=== PATIENT | female | born 1950 | race Caucasian/White ===

== ENCOUNTER 2020-03-06 11:41 | Inpatient (IN) ==
[2020-03-06] MEDS ORDERED: Aspirin 81 MG TAB.CHEW PO ONE (11:47)
[2020-03-06] MEDS ORDERED: 0.9 % Sodium Chloride 1,000 ML IVC SCH (12:15)
[2020-03-06 12:39] LABS: Basophils % 0.2 %; Hematocrit 44.9 % (35.3-44.9); Hemoglobin 14.5 g/dL (11.5-15.4); Immature Granulocytes % 0.6 % (0-4); Lymphocytes # 0.8 K/mcL (0.6-4.6); Lymphocytes % 5.3 %; Mean Corpuscular HGB Conc 32.3 g/dL (31.6-35.5); Mean Corpuscular Hemoglobin 26.2 pg (28.0-33.3); Mean Platelet Volume 9.6 fL (9.4-12.4); Monocytes # 1.1 K/mcL (0.0-1.3); Monocytes % 6.7 %; Neutrophils # 13.7 K/mcL (1.6-8.9); Platelet Count 373 K/mcL (140-400); Red Blood Count 5.54 M/mcL (3.82-4.97); Red Cell Distribution Width 14.8 % (11.5-14.5); Segmented Neutrophils % 87.2 %; White Blood Count 15.7 K/mcL (4.3-11.1)
[2020-03-06 12:42] LABS: VBG HCO3 16 mEq/L (21-27); VBG PCO2 37 mmHg (41-51); VBG PH 7.25 pH Units (7.32-7.42); VBG PO2 47 mmHg (25-50)
[2020-03-06 12:49] LABS: INR 1.1; Prothrombin Time 13.1 Seconds (9.4-12.1)
[2020-03-06] MEDS ORDERED: Ondansetron 4 MG/2 ML VIAL IVP ONE (12:55)
[2020-03-06 13:00] LABS: Albumin 3.8 g/dL (3.5-5.7); Albumin/Globulin Ratio 0.8 (1.1-2.2); Bilirubin,Direct 0.1 mg/dL (0.0-0.2); Bilirubin,Indirect 0.5 mg/dL (0.0-1.0); Bilirubin,Total 0.6 mg/dL (0.3-1.0); Calcium 10.1 mg/dL (8.6-10.3); Globulin 4.7 g/dL (2.4-3.5); Potassium 5.1 mEq/L (3.5-5.1); Total Protein 8.5 g/dL (6.4-8.9); Troponin I 0.03 ng/mL (< 0.04)
[2020-03-06] MEDS ORDERED: Azithromycin 500 MG in 0.9 % Sodium Chloride 250 ML IVPB ONE (13:16)
[2020-03-06] MEDS ORDERED: cefTRIAXone 2,000 MG in Water for inj. (sterile) 20 ML IVP ONE (13:16)
[2020-03-06] MEDS ORDERED: Insulin Regular, Human 100 UNIT/ML IV ONE (13:18)
[2020-03-06] MEDS ORDERED: 0.9 % Sodium Chloride 1,000 ML IVC ONE ×2 (13:19→13:43)
[2020-03-06 13:22] LABS: Bacteria,Urine Few per hpf (None-Few); Bilirubin,Urine Negative (Negative); Blood,Urine Moderate (Negative); Clarity,Urine Ex.Turbid (Clear); Color,Urine Yellow (Yellow); Glucose,Urine (UA) >=1000 mg/dL (Normal); Ketones,Urine 20 mg/dL (Negative); Leukocyte Esterase,Urine Large (Negative); Mucus,Urine Few per lpf (None-Few); Nitrite,Urine Negative (Negative); PH,Urine 6.5 pH Units (5.0-8.0); Protein,Urine 70 mg/dL (Neg-Trace); RBC,Urine 0-3 per hpf (0-3); Specific Gravity,Urine 1.016 (1.010-1.025); Squamous Epithelial Cell,Urine Few per hpf (None-Few); Urobilinogen,Urine Normal (Normal); WBC,Urine TNTC per hpf (0-3)
[2020-03-06] MEDS ORDERED: Insulin Human Regular 100 UNIT in 0.9 % Sodium Chloride 100 ML IVC SCH ×2 (13:30→21:45)
[2020-03-06] MEDS ORDERED: Naloxone 0.4 MG/ML INJ IVP PRN (15:05)
[2020-03-06] MEDS ORDERED: Acetaminophen 325 MG TABLET PO PRN (15:05)
[2020-03-06] MEDS ORDERED: *HR* Dextrose 50 % in Water (Vial) 50 ML VIAL IVP PRN ×2 (15:13→20:28)
[2020-03-06] MEDS: 0.45 % Sodium Chloride w/KCl 20 MEQ/1,000 ML MLS IVC SCH (16:03)
[2020-03-06 16:33] LABS: Acetaminophen < 10 mcg/mL (10-20); BUN/Creatinine Ratio 35 (6-26); Blood Urea Nitrogen 44 mg/dL (8-23); Carbon Dioxide 16 mEq/L (23-29); Chloride 100 mEq/L (98-107); Glucose 332 mg/dL (70-105); Osmolality,Calculated 300 (280-300); Potassium 4.4 mEq/L (3.5-5.1); Sodium 133 mEq/L (136-145); eGFR For African Americans 52 (> 60); eGFR For Non-African Americans 43 (> 60)
[2020-03-06 17:05] LABS: Estimated Average Glucose 303 mg/dl
[2020-03-06 17:05] LABS: ABG Base Excess -7 mEq/L (-2 to 3); ABG HCO3 16 mEq/L (21-27); ABG Oxygen Saturation 98 % (95-98); ABG PCO2 25 mmHg (35-45); ABG PO2 108 mmHg (85-104); ABG TCO2 17 mEq/L (20-26)
[2020-03-06 17:48] LABS: Chol/HDL Ratio 4.1 (0-4.9); Cholesterol 150 mg/dL (< 200); HDL Cholesterol 37 mg/dL (40-59); LDL Cholesterol,Calculated 78 mg/dL (< 100); Triglycerides 174 mg/dL (< 150)
[2020-03-06 18:45] LABS: Calcium 9.3 mg/dL (8.6-10.3); Potassium 4.8 mEq/L (3.5-5.1)
[2020-03-06] MEDS: Ondansetron 4 MG/2 ML VIAL IVP PRN (19:47)
[2020-03-06] MEDS ORDERED: D5% in Water 1,000 ML IVC PRN (20:28)
[2020-03-06] MEDS ORDERED: Dextrose Gel 15 GM/37.5 ML TUBE PO PRN ×2 (20:28)
[2020-03-06] MEDS ORDERED: Insulin LISPRO 300 UNITS/3 ML VIAL SQ SCH (21:00)
[2020-03-06] MEDS ORDERED: Insulin DETEMIR 100 UNIT/ML X5UNITS SQ SCH (21:00)
[2020-03-06] MEDS ORDERED: D5% in 0.45% NACL 1,000 ML IVC PRN ×2 (21:43→21:57)
[2020-03-06] MEDS: D5% in 0.45% NACL w KCl 20 MEQ/1,000 ML MLS IVC PRN (22:00)
[2020-03-06] MEDS: Insulin Human Regular 100 UNIT in 0.9 % Sodium Chloride 100 ML IVC SCH (22:04)
[2020-03-06] MEDS: Ipratropium 1 PUFF INHALER IH SCH (22:19)
[2020-03-06] MEDS: *HR* Promethazine 25 MG/ML VIAL IM PRN (22:27)
[2020-03-07] MEDS: 0.45 % Sodium Chloride w/KCl 20 MEQ/1,000 ML MLS IVC SCH (00:02)
[2020-03-07] MEDS: D5% in 0.45% NACL w KCl 20 MEQ/1,000 ML MLS IVC PRN ×2 (02:12→06:23)
[2020-03-07] MEDS: Ipratropium 1 PUFF INHALER IH SCH ×5 (04:23→19:47)
[2020-03-07 04:48] LABS: C-Reactive Protein 63 mg/L (Less than 10); Lactate Dehydrogenase 129 Units/L (140-271)
[2020-03-07 04:51] LABS: Alanine Aminotransferase 4 Units/L (7-52); Albumin 2.9 g/dL (3.5-5.7); Albumin/Globulin Ratio 0.8 (1.1-2.2); Alkaline Phosphatase 102 Units/L (34-104); Aspartate Amino Transferase 7 Units/L (13-39); BUN/Creatinine Ratio 36 (6-26); Bilirubin,Total 0.5 mg/dL (0.3-1.0); Blood Urea Nitrogen 36 mg/dL (8-23); Calcium 8.4 mg/dL (8.6-10.3); Carbon Dioxide 18 mEq/L (23-29); Chloride 102 mEq/L (98-107); Globulin 3.5 g/dL (2.4-3.5); Glucose 199 mg/dL (70-105); Magnesium 1.8 mg/dL (1.6-2.6); Osmolality,Calculated 284 (280-300); Phosphorous 1.1 mg/dL (2.7-4.5); Potassium 4.7 mEq/L (3.5-5.1); Sodium 130 mEq/L (136-145); Total Protein 6.4 g/dL (6.4-8.9); Troponin I < 0.03 ng/mL (< 0.04); eGFR For African Americans > 60 (> 60); eGFR For Non-African Americans 55 (> 60)
[2020-03-07 05:04] LABS: Basophils % 0.2 %; Eosinophils % 0.1 %; Hematocrit 36.3 % (35.3-44.9); Immature Granulocytes % 0.3 % (0-4); Lymphocytes # 1.2 K/mcL (0.6-4.6); Mean Corpuscular HGB Conc 32.5 g/dL (31.6-35.5); Mean Corpuscular Hemoglobin 26.3 pg (28.0-33.3); Monocytes # 1.1 K/mcL (0.0-1.3); Monocytes % 10.6 %; Neutrophils # 8.3 K/mcL (1.6-8.9); Platelet Count 267 K/mcL (140-400); Red Blood Count 4.48 M/mcL (3.82-4.97); Red Cell Distribution Width 14.7 % (11.5-14.5); Segmented Neutrophils % 77.8 %; White Blood Count 10.6 K/mcL (4.3-11.1)
[2020-03-07 05:05] LABS: Hemoglobin 11.8 g/dL (11.5-15.4)
[2020-03-07] MEDS: *HR* Enoxaparin 40 MG/0.4 ML SYRINGE SQ SCH (05:20)
[2020-03-07] MEDS ORDERED: Insulin LISPRO 300 UNITS/3 ML VIAL SQ SCH (07:30)
[2020-03-07] MEDS: Insulin Human Regular 100 UNIT in 0.9 % Sodium Chloride 100 ML IVC SCH (07:53)
[2020-03-07] MEDS: Insulin DETEMIR 100 UNIT/ML X5UNITS SQ SCH ×2 (10:23→20:04)
[2020-03-07] MEDS: Insulin LISPRO 300 UNITS/3 ML VIAL SQ SCH ×3 (11:26→20:26)
[2020-03-07] MEDS ORDERED: Azithromycin 500 MG in 0.9 % Sodium Chloride 250 ML IVPB SCH (14:00)
[2020-03-07] MEDS: cefTRIAXone 1,000 MG in Water for inj. (sterile) 10 ML IVP SCH (14:20)
[2020-03-07] MEDS: Ondansetron 4 MG/2 ML VIAL IVP PRN (14:40)
[2020-03-07] MEDS: *HR* Promethazine 25 MG/ML VIAL IM PRN (20:04)
[2020-03-07] MEDS ORDERED: Insulin DETEMIR 100 UNIT/ML X5UNITS SQ SCH (21:00)
[2020-03-07] MEDS ORDERED: Potassium Phosphate 44 MEQ in 0.9 % Sodium Chloride 250 ML IVPB ONE (22:00)
[2020-03-08] MEDS: Ipratropium 1 PUFF INHALER IH SCH ×4 (03:24→21:50)
[2020-03-08 05:08] LABS: Basophils % 0.6 %; Eosinophils % 0.4 %; Hematocrit 39.1 % (35.3-44.9); Hemoglobin 12.3 g/dL (11.5-15.4); Immature Granulocytes % 0.4 % (0-4); Lymphocytes # 1.3 K/mcL (0.6-4.6); Lymphocytes % 18.6 %; Mean Corpuscular HGB Conc 31.5 g/dL (31.6-35.5); Mean Corpuscular Hemoglobin 25.5 pg (28.0-33.3); Mean Corpuscular Volume 81.1 fL (83.0-100.0); Mean Platelet Volume 9.2 fL (9.4-12.4); Monocytes # 0.8 K/mcL (0.0-1.3); Monocytes % 11.7 %; Neutrophils # 4.9 K/mcL (1.6-8.9); Platelet Count 264 K/mcL (140-400); Red Blood Count 4.82 M/mcL (3.82-4.97); Red Cell Distribution Width 15.1 % (11.5-14.5); Segmented Neutrophils % 68.3 %; White Blood Count 7.1 K/mcL (4.3-11.1)
[2020-03-08] MEDS: *HR* Enoxaparin 40 MG/0.4 ML SYRINGE SQ SCH (05:16)
[2020-03-08 05:34] LABS: % Iron Saturation 19 % (15-50); Alanine Aminotransferase 5 Units/L (7-52); Albumin 2.8 g/dL (3.5-5.7); Albumin/Globulin Ratio 0.8 (1.1-2.2); Alkaline Phosphatase 101 Units/L (34-104); Aspartate Amino Transferase 7 Units/L (13-39); BUN/Creatinine Ratio 24 (6-26); Bilirubin,Total 0.5 mg/dL (0.3-1.0); Blood Urea Nitrogen 19 mg/dL (8-23); C-Reactive Protein 60 mg/L (Less than 10); Calcium 8.5 mg/dL (8.6-10.3); Carbon Dioxide 18 mEq/L (23-29); Chloride 109 mEq/L (98-107); Globulin 3.7 g/dL (2.4-3.5); Glucose 147 mg/dL (70-105); Iron 36 mcg/dL (50-170); Lactate Dehydrogenase 128 Units/L (140-271); Magnesium 1.7 mg/dL (1.6-2.6); Osmolality,Calculated 289 (280-300); Phosphorous 2.9 mg/dL (2.7-4.5); Potassium 4.1 mEq/L (3.5-5.1); Sodium 137 mEq/L (136-145); Total Protein 6.5 g/dL (6.4-8.9); Transferrin 132 mg/dL (203-362); eGFR For African Americans > 60 (> 60); eGFR For Non-African Americans > 60 (> 60)
[2020-03-08 05:47] LABS: Ferritin 376 ng/mL (10-120)
[2020-03-08 05:52] LABS: Folate 5.2 ng/mL (3.0-16.0)
[2020-03-08] MEDS: Insulin LISPRO 300 UNITS/3 ML VIAL SQ SCH ×7 (07:35→20:21)
[2020-03-08] MEDS: Magic Mouthwash 10 ML UD Cup PO SCH ×3 (07:36→16:27)
[2020-03-08] MEDS: Chlorhexidine Rinse 15 ML MOUTHWASH MM SCH ×2 (07:37→20:20)
[2020-03-08] MEDS: Fluticasone Propionate Nasal 50 MCG/SPRAY BOTTLE NS SCH (07:37)
[2020-03-08] MEDS: lisinopriL 5 MG TABLET PO SCH (07:38)
[2020-03-08] MEDS: Insulin DETEMIR 100 UNIT/ML X5UNITS SQ SCH ×2 (07:38→20:21)
[2020-03-08] MEDS: cefTRIAXone 1,000 MG in Water for inj. (sterile) 10 ML IVP SCH (13:57)
[2020-03-08] MEDS: Sennosides/Docusate Sodium TABLET PO SCH (20:20)
[2020-03-08] MEDS: Pantoprazole 40 MG VIAL IVP SCH (20:22)
[2020-03-09] MEDS: Ipratropium 1 PUFF INHALER IH SCH ×4 (03:09→21:37)
[2020-03-09 04:40] LABS: Basophils % 0.4 %; Eosinophils % 0.5 %; Hematocrit 37.1 % (35.3-44.9); Hemoglobin 11.8 g/dL (11.5-15.4); Immature Granulocytes % 0.1 % (0-4); Lymphocytes # 1.7 K/mcL (0.6-4.6); Lymphocytes % 22.3 %; Mean Corpuscular HGB Conc 31.8 g/dL (31.6-35.5); Mean Corpuscular Volume 81.9 fL (83.0-100.0); Mean Platelet Volume 9.1 fL (9.4-12.4); Monocytes # 0.8 K/mcL (0.0-1.3); Monocytes % 9.8 %; Neutrophils # 5.1 K/mcL (1.6-8.9); Platelet Count 232 K/mcL (140-400); Red Blood Count 4.53 M/mcL (3.82-4.97); Red Cell Distribution Width 15.4 % (11.5-14.5); Segmented Neutrophils % 66.9 %; White Blood Count 7.6 K/mcL (4.3-11.1)
[2020-03-09 05:05] LABS: Alanine Aminotransferase 4 Units/L (7-52); Albumin 2.7 g/dL (3.5-5.7); Albumin/Globulin Ratio 0.8 (1.1-2.2); Alkaline Phosphatase 93 Units/L (34-104); Aspartate Amino Transferase 7 Units/L (13-39); BUN/Creatinine Ratio 18 (6-26); Bilirubin,Total 0.4 mg/dL (0.3-1.0); Blood Urea Nitrogen 12 mg/dL (8-23); C-Reactive Protein 37 mg/L (Less than 10); Calcium 8.3 mg/dL (8.6-10.3); Carbon Dioxide 19 mEq/L (23-29); Chloride 108 mEq/L (98-107); Globulin 3.2 g/dL (2.4-3.5); Glucose 112 mg/dL (70-105); Lactate Dehydrogenase 122 Units/L (140-271); Magnesium 1.5 mg/dL (1.6-2.6); Osmolality,Calculated 279 (280-300); Phosphorous 2.2 mg/dL (2.7-4.5); Potassium 4.3 mEq/L (3.5-5.1); Sodium 134 mEq/L (136-145); Total Protein 5.9 g/dL (6.4-8.9); eGFR For African Americans > 60 (> 60); eGFR For Non-African Americans > 60 (> 60)
[2020-03-09 05:19] LABS: Ferritin 273 ng/mL (10-120)
[2020-03-09] MEDS: Pantoprazole 40 MG VIAL IVP SCH (05:45)
[2020-03-09] MEDS: *HR* Enoxaparin 40 MG/0.4 ML SYRINGE SQ SCH (05:45)
[2020-03-09] MEDS: Insulin LISPRO 300 UNITS/3 ML VIAL SQ SCH ×7 (07:09→22:12)
[2020-03-09] MEDS: Chlorhexidine Rinse 15 ML MOUTHWASH MM SCH ×2 (09:05→21:18)
[2020-03-09] MEDS: lisinopriL 5 MG TABLET PO SCH (09:06)
[2020-03-09] MEDS: Magic Mouthwash 10 ML UD Cup PO SCH ×3 (09:09→16:11)
[2020-03-09] MEDS: Insulin DETEMIR 100 UNIT/ML X5UNITS SQ SCH ×2 (09:09→21:18)
[2020-03-09] MEDS: Sennosides/Docusate Sodium TABLET PO SCH ×2 (09:12→21:18)
[2020-03-09] MEDS: cefTRIAXone 1,000 MG in Water for inj. (sterile) 10 ML IVP SCH (14:34)
[2020-03-09] MEDS ORDERED: Iron Sucrose Complex 400 MG in 0.9 % Sodium Chloride 250 ML IVPB ONE (16:10)
[2020-03-09] MEDS: Fluticasone Propionate Nasal 50 MCG/SPRAY BOTTLE NS SCH (16:27)
[2020-03-09] MEDS ORDERED: Insulin LISPRO 300 UNITS/3 ML VIAL SQ SCH (16:30)
[2020-03-10] MEDS: Ipratropium 1 PUFF INHALER IH SCH ×4 (03:15→22:05)
[2020-03-10] MEDS: *HR* Enoxaparin 40 MG/0.4 ML SYRINGE SQ SCH (05:16)
[2020-03-10 06:57] LABS: Basophils % 0.6 %; Eosinophils # 0.1 K/mcL (0.0-0.6); Eosinophils % 1.2 %; Hematocrit 36.4 % (35.3-44.9); Hemoglobin 11.6 g/dL (11.5-15.4); Immature Granulocytes % 0.3 % (0-4); Lymphocytes # 1.5 K/mcL (0.6-4.6); Lymphocytes % 22.8 %; Mean Corpuscular HGB Conc 31.9 g/dL (31.6-35.5); Mean Corpuscular Hemoglobin 25.8 pg (28.0-33.3); Mean Corpuscular Volume 80.9 fL (83.0-100.0); Mean Platelet Volume 9.1 fL (9.4-12.4); Monocytes # 0.6 K/mcL (0.0-1.3); Monocytes % 9.8 %; Neutrophils # 4.2 K/mcL (1.6-8.9); Platelet Count 222 K/mcL (140-400); Red Cell Distribution Width 15.4 % (11.5-14.5); Segmented Neutrophils % 65.3 %; White Blood Count 6.5 K/mcL (4.3-11.1)
[2020-03-10 07:28] LABS: Alanine Aminotransferase 6 Units/L (7-52); Albumin 2.7 g/dL (3.5-5.7); Albumin/Globulin Ratio 0.9 (1.1-2.2); Alkaline Phosphatase 98 Units/L (34-104); Aspartate Amino Transferase 6 Units/L (13-39); BUN/Creatinine Ratio 12 (6-26); Bilirubin,Total 0.4 mg/dL (0.3-1.0); Blood Urea Nitrogen 8 mg/dL (8-23); Calcium 8.5 mg/dL (8.6-10.3); Carbon Dioxide 21 mEq/L (23-29); Chloride 105 mEq/L (98-107); Glucose 96 mg/dL (70-105); Lactate Dehydrogenase 103 Units/L (140-271); Magnesium 2.1 mg/dL (1.6-2.6); Osmolality,Calculated 274 (280-300); Phosphorous 2.8 mg/dL (2.7-4.5); Sodium 133 mEq/L (136-145); Total Protein 5.7 g/dL (6.4-8.9); eGFR For African Americans > 60 (> 60); eGFR For Non-African Americans > 60 (> 60)
[2020-03-10 07:34] LABS: Ferritin 269 ng/mL (10-120)
[2020-03-10] MEDS: Insulin LISPRO 300 UNITS/3 ML VIAL SQ SCH ×6 (07:36→20:55)
[2020-03-10 09:18] LABS: C-Reactive Protein 32 mg/L (Less than 10)
[2020-03-10] MEDS: Chlorhexidine Rinse 15 ML MOUTHWASH MM SCH (09:42)
[2020-03-10] MEDS: Magic Mouthwash 10 ML UD Cup PO SCH ×2 (09:42→12:28)
[2020-03-10] MEDS: Sennosides/Docusate Sodium TABLET PO SCH ×2 (09:42→20:54)
[2020-03-10] MEDS: Fluticasone Propionate Nasal 50 MCG/SPRAY BOTTLE NS SCH (09:43)
[2020-03-10] MEDS: lisinopriL 5 MG TABLET PO SCH (09:43)
[2020-03-10] MEDS: Insulin DETEMIR 100 UNIT/ML X5UNITS SQ SCH (09:43)
[2020-03-10] MEDS: Ondansetron 4 MG/2 ML VIAL IVP PRN (12:58)
[2020-03-10] MEDS ORDERED: Pantoprazole 40 MG VIAL IVP ONE (13:29)
[2020-03-10] MEDS: GI Cocktail 40 ML EACH PO ONE ×2 (14:18→16:42)
[2020-03-10] MEDS ORDERED: Nystatin POWDER 30 GM BOTTLE TP PRN (17:41)
[2020-03-11 02:24] LABS: Hematocrit 35.6 % (35.3-44.9); Hemoglobin 11.2 g/dL (11.5-15.4); Mean Corpuscular HGB Conc 31.5 g/dL (31.6-35.5); Mean Corpuscular Hemoglobin 25.5 pg (28.0-33.3); Mean Corpuscular Volume 81.1 fL (83.0-100.0); Mean Platelet Volume 9.5 fL (9.4-12.4); Platelet Count 213 K/mcL (140-400); Red Blood Count 4.39 M/mcL (3.82-4.97); Red Cell Distribution Width 15.4 % (11.5-14.5); White Blood Count 6.1 K/mcL (4.3-11.1)
[2020-03-11 02:39] LABS: BUN/Creatinine Ratio 13 (6-26); Blood Urea Nitrogen 8 mg/dL (8-23); Calcium 8.1 mg/dL (8.6-10.3); Carbon Dioxide 19 mEq/L (23-29); Chloride 103 mEq/L (98-107); Glucose 182 mg/dL (70-105); Osmolality,Calculated 275 (280-300); Sodium 131 mEq/L (136-145); eGFR For African Americans > 60 (> 60); eGFR For Non-African Americans > 60 (> 60)
[2020-03-11] MEDS: Ipratropium 1 PUFF INHALER IH SCH ×3 (03:22→10:32)
[2020-03-11] MEDS: *HR* Enoxaparin 40 MG/0.4 ML SYRINGE SQ SCH (06:43)
[2020-03-11] MEDS: lisinopriL 5 MG TABLET PO SCH (08:40)
[2020-03-11] MEDS: Fluticasone Propionate Nasal 50 MCG/SPRAY BOTTLE NS SCH (08:41)
[2020-03-11] MEDS: Insulin LISPRO 300 UNITS/3 ML VIAL SQ SCH ×3 (08:41→16:04)
[2020-03-11] MEDS ORDERED: Insulin DETEMIR 100 UNIT/ML X5UNITS SQ SCH (09:00)
[2020-03-11] MEDS ORDERED: Isovue-370 500 ML BOTTLE IVP ONE (09:07)
[2020-03-11] MEDS ORDERED: Mag Hydrox/Al Hydrox/Simeth 30 ML UDC PO PRN (10:30)
[2020-03-11 12:38] VITALS: BP 110/65
== END 2020-03-11 17:42 | disposition home health service (06) | DRG 871 ==
LOC: 2NENU 11:41 → EMEROOARM 11:41 → SUATTDRO 14:36 → 2NENU 15:15
PROVIDERS: ADMIT Internal Medicine; ATTEND Internal Medicine

== ENCOUNTER 2020-05-02 10:13 | Inpatient (IN) ==
[2020-05-02] MEDS ORDERED: 0.9 % Sodium Chloride 1,000 ML IVC ONE (10:22)
[2020-05-02] MEDS ORDERED: Isovue-370 500 ML BOTTLE IVP ONE (10:22)
[2020-05-02 10:56] LABS: Basophils % 0.2 %; Hematocrit 48.8 % (35.3-44.9); Hemoglobin 15.6 g/dL (11.5-15.4); Immature Granulocytes % 0.5 % (0-4); Lymphocytes # 0.8 K/mcL (0.6-4.6); Mean Corpuscular Hemoglobin 26.9 pg (28.0-33.3); Mean Corpuscular Volume 84.1 fL (83.0-100.0); Mean Platelet Volume 9.6 fL (9.4-12.4); Monocytes # 0.6 K/mcL (0.0-1.3); Neutrophils # 11.3 K/mcL (1.6-8.9); Platelet Count 436 K/mcL (140-400); Red Cell Distribution Width 18.9 % (11.5-14.5); Segmented Neutrophils % 88.3 %; White Blood Count 12.8 K/mcL (4.3-11.1)
[2020-05-02 11:26] LABS: Alanine Aminotransferase 5 Units/L (7-52); Alkaline Phosphatase 131 Units/L (34-104); Aspartate Amino Transferase 5 Units/L (13-39); BUN/Creatinine Ratio 19 (6-26); Bilirubin,Direct 0.1 mg/dL (0.0-0.2); Bilirubin,Indirect 0.4 mg/dL (0.0-1.0); Bilirubin,Total 0.5 mg/dL (0.3-1.0); Blood Urea Nitrogen 35 mg/dL (8-23); Calcium 10.6 mg/dL (8.6-10.3); Carbon Dioxide 14 mEq/L (23-29); Chloride 93 mEq/L (98-107); Globulin 4.1 g/dL (2.4-3.5); Glucose 613 mg/dL (70-105); Lipase 394 Units/L (11-82); Osmolality,Calculated 321 (280-300); Potassium 4.3 mEq/L (3.5-5.1); Sodium 137 mEq/L (136-145); Total Protein 8.1 g/dL (6.4-8.9); Troponin I < 0.03 ng/mL (< 0.04); eGFR For African Americans 33 (> 60); eGFR For Non-African Americans 27 (> 60)
[2020-05-02] MEDS ORDERED: *HR* Dextrose 50 % in Water (Vial) 50 ML VIAL IVP PRN ×2 (11:30→13:54)
[2020-05-02] MEDS ORDERED: Insulin Human Regular 100 UNIT in 0.9 % Sodium Chloride 100 ML IVC SCH (11:30)
[2020-05-02 11:41] LABS: VBG HCO3 15 mEq/L (21-27); VBG PCO2 26 mmHg (41-51); VBG PH 7.35 pH Units (7.32-7.42); VBG PO2 57 mmHg (25-50)
[2020-05-02] MEDS ORDERED: Potassium Chloride 40 MEQ, Lidocaine 1% 2 ML in 0.9 % Sodium Chloride 500 ML IVPB ONE (11:47)
[2020-05-02] MEDS ORDERED: Morphine Sulfate 2 MG/ML SYRINGE IVP STA (12:08)
[2020-05-02 12:58] LABS: Bacteria,Urine Few per hpf (None-Few); Bilirubin,Urine Negative (Negative); Blood,Urine Moderate (Negative); Budding Yeast,Urine Many per hpf (None Seen); Clarity,Urine Ex.Turbid (Clear); Color,Urine Yellow (Yellow); Glucose,Urine (UA) >=1000 mg/dL (Normal); Ketones,Urine 60 mg/dL (Negative); Leukocyte Esterase,Urine Large (Negative); Mucus,Urine Few per lpf (None-Few); Nitrite,Urine Negative (Negative); PH,Urine 5.5 pH Units (5.0-8.0); Protein,Urine 70 mg/dL (Neg-Trace); RBC,Urine TNTC per hpf (0-3); Specific Gravity,Urine > 1.030 (1.010-1.025); Squamous Epithelial Cell,Urine Many per hpf (None-Few); Urobilinogen,Urine Normal (Normal); WBC,Urine TNTC per hpf (0-3)
[2020-05-02] MEDS: 0.9 % Sodium Chloride 1,000 ML IVC SCH ×2 (12:58→13:43)
[2020-05-02] MEDS ORDERED: Naloxone 0.4 MG/ML INJ IVP PRN (13:52)
[2020-05-02] MEDS ORDERED: Metoclopramide 10 MG/2 ML VIAL IVP PRN (13:59)
[2020-05-02] MEDS: 0.45 % Sodium Chloride w/KCl 20 MEQ/1,000 ML MLS IVC SCH ×2 (15:07→23:37)
[2020-05-02] MEDS: *HR* Promethazine 25 MG/ML VIAL IM PRN (15:31)
[2020-05-02 16:13] LABS: Calcium 9.6 mg/dL (8.6-10.3); Potassium 3.7 mEq/L (3.5-5.1)
[2020-05-02] MEDS: Pantoprazole 40 MG VIAL IVP SCH (16:46)
[2020-05-02] MEDS: *HR* Heparin 5,000 UNIT/ML VIAL SQ SCH (16:46)
[2020-05-02] MEDS: cefTRIAXone 1,000 MG in Water for inj. (sterile) 10 ML IVP SCH (16:46)
[2020-05-02] MEDS: Nystatin POWDER 30 GM BOTTLE TP SCH (16:47)
[2020-05-02] MEDS: D5% in 0.45% NACL 1,000 ML IVC PRN (18:01)
[2020-05-02 19:42] LABS: Potassium 4.7 mEq/L (3.5-5.1)
[2020-05-02 21:09] LABS: Calcium 9.1 mg/dL (8.6-10.3)
[2020-05-03] MEDS: *HR* Promethazine 25 MG/ML VIAL IM PRN ×2 (01:05→06:29)
[2020-05-03 01:54] LABS: Basophils % 0.2 %; Hematocrit 40.8 % (35.3-44.9); Immature Granulocytes % 0.5 % (0-4); Lymphocytes # 1.1 K/mcL (0.6-4.6); Lymphocytes % 8.1 %; Mean Corpuscular HGB Conc 32.1 g/dL (31.6-35.5); Mean Corpuscular Volume 84.1 fL (83.0-100.0); Mean Platelet Volume 9.5 fL (9.4-12.4); Monocytes # 0.9 K/mcL (0.0-1.3); Monocytes % 6.9 %; Neutrophils # 11.2 K/mcL (1.6-8.9); Platelet Count 345 K/mcL (140-400); Red Blood Count 4.85 M/mcL (3.82-4.97); Red Cell Distribution Width 18.3 % (11.5-14.5); Segmented Neutrophils % 84.3 %; White Blood Count 13.3 K/mcL (4.3-11.1)
[2020-05-03 01:55] LABS: Hemoglobin 13.1 g/dL (11.5-15.4)
[2020-05-03 02:06] LABS: Calcium 8.9 mg/dL (8.6-10.3); Potassium 3.8 mEq/L (3.5-5.1)
[2020-05-03 02:08] LABS: Magnesium 1.7 mg/dL (1.6-2.6); Phosphorous 1.3 mg/dL (2.7-4.5)
[2020-05-03] MEDS: D5% in 0.45% NACL 1,000 ML IVC PRN ×2 (02:09→18:59)
[2020-05-03 03:38] LABS: BUN/Creatinine Ratio 24 (6-26); Blood Urea Nitrogen 26 mg/dL (8-23); Calcium 8.7 mg/dL (8.6-10.3); Carbon Dioxide 18 mEq/L (23-29); Chloride 113 mEq/L (98-107); Glucose 159 mg/dL (70-105); Osmolality,Calculated 302 (280-300); Potassium 4.8 mEq/L (3.5-5.1); Sodium 142 mEq/L (136-145); eGFR For African Americans > 60 (> 60); eGFR For Non-African Americans 50 (> 60)
[2020-05-03] MEDS: Pantoprazole 40 MG VIAL IVP SCH ×2 (06:30→17:57)
[2020-05-03] MEDS: *HR* Heparin 5,000 UNIT/ML VIAL SQ SCH ×2 (06:30→17:56)
[2020-05-03 06:57] LABS: BUN/Creatinine Ratio 25 (6-26); Blood Urea Nitrogen 24 mg/dL (8-23); Calcium 8.5 mg/dL (8.6-10.3); Carbon Dioxide 17 mEq/L (23-29); Chloride 111 mEq/L (98-107); Glucose 218 mg/dL (70-105); Osmolality,Calculated 295 (280-300); Potassium 4.4 mEq/L (3.5-5.1); Sodium 137 mEq/L (136-145); eGFR For African Americans > 60 (> 60); eGFR For Non-African Americans 57 (> 60)
[2020-05-03] MEDS: cefTRIAXone 1,000 MG in Water for inj. (sterile) 10 ML IVP SCH (07:39)
[2020-05-03 07:41] LABS: Estimated Average Glucose 266 mg/dl; Hemoglobin A1C 10.9 %
[2020-05-03] MEDS: Nystatin POWDER 30 GM BOTTLE TP SCH ×3 (07:47→22:14)
[2020-05-03] MEDS: Ondansetron 4 MG/2 ML VIAL IVP PRN (09:22)
[2020-05-03] MEDS: 0.45 % Sodium Chloride w/KCl 20 MEQ/1,000 ML MLS IVC SCH (09:22)
[2020-05-03] MEDS ORDERED: Ondansetron 4 MG/2 ML VIAL IVP SCH (12:00)
[2020-05-03 12:51] LABS: Influenza A PCR Negative (Negative); Influenza B PCR Negative (Negative); Resp. Syncytial Virus PCR Negative (Negative)
[2020-05-03 12:52] LABS: SARS-CoV-2 by PCR (In House) Negative (Negative)
[2020-05-03] MEDS ORDERED: Lidocaine -MPF 2% 2 ML VIAL ONE (13:12)
[2020-05-03] MEDS ORDERED: *HR* Propofol 200 MG/20 ML VIAL IVP ONE (13:12)
[2020-05-03] MEDS ORDERED: Ondansetron 4 MG/2 ML VIAL ONE (13:21)
[2020-05-03] MEDS ORDERED: *HR* Succinylcholine 200 MG/10 ML VIAL IVP ONE (13:21)
[2020-05-03] MEDS ORDERED: Lidocaine -MPF 4% 5 ML AMPUL ONE (13:22)
[2020-05-03] MEDS ORDERED: Insulin Human Regular 100 UNIT in 0.9 % Sodium Chloride 100 ML IVC SCH (18:15)
[2020-05-03 18:59] LABS: BUN/Creatinine Ratio 20 (6-26); Blood Urea Nitrogen 16 mg/dL (8-23); Calcium 8.3 mg/dL (8.6-10.3); Carbon Dioxide 20 mEq/L (23-29); Chloride 109 mEq/L (98-107); Glucose 220 mg/dL (70-105); Osmolality,Calculated 292 (280-300); Potassium 3.6 mEq/L (3.5-5.1); Sodium 137 mEq/L (136-145); eGFR For African Americans > 60 (> 60); eGFR For Non-African Americans > 60 (> 60)
[2020-05-04 01:09] LABS: BUN/Creatinine Ratio 16 (6-26); Blood Urea Nitrogen 14 mg/dL (8-23); Calcium 8.2 mg/dL (8.6-10.3); Carbon Dioxide 16 mEq/L (23-29); Chloride 112 mEq/L (98-107); Glucose 122 mg/dL (70-105); Osmolality,Calculated 290 (280-300); Potassium 3.2 mEq/L (3.5-5.1); Sodium 139 mEq/L (136-145); eGFR For African Americans > 60 (> 60); eGFR For Non-African Americans > 60 (> 60)
[2020-05-04] MEDS ORDERED: 0.45 % Sodium Chloride w/KCl 20 MEQ/1,000 ML MLS IVC SCH (01:15)
[2020-05-04] MEDS: cefTRIAXone 1,000 MG in Water for inj. (sterile) 10 ML IVP SCH (08:11)
[2020-05-04] MEDS: Nystatin POWDER 30 GM BOTTLE TP SCH ×3 (08:12→20:28)
[2020-05-04] MEDS: Pantoprazole 40 MG VIAL IVP SCH ×2 (08:12→17:53)
[2020-05-04] MEDS: *HR* Heparin 5,000 UNIT/ML VIAL SQ SCH (08:12)
[2020-05-04] MEDS: Ondansetron 4 MG/2 ML VIAL IVP PRN (08:14)
[2020-05-04] MEDS ORDERED: Insulin DETEMIR 100 UNIT/ML X5UNITS SUBQ ONE (09:21)
[2020-05-04 11:41] LABS: Hematocrit 36.4 % (35.3-44.9); Hemoglobin 11.7 g/dL (11.5-15.4); Mean Corpuscular HGB Conc 32.1 g/dL (31.6-35.5); Mean Corpuscular Hemoglobin 27.3 pg (28.0-33.3); Mean Corpuscular Volume 84.8 fL (83.0-100.0); Mean Platelet Volume 9.9 fL (9.4-12.4); Platelet Count 221 K/mcL (140-400); Red Blood Count 4.29 M/mcL (3.82-4.97); Red Cell Distribution Width 18.5 % (11.5-14.5)
[2020-05-04 11:56] LABS: C-Reactive Protein 75 mg/L (Less than 10)
[2020-05-04] MEDS: *HR* Promethazine 25 MG/ML VIAL IM PRN ×2 (13:24→20:35)
[2020-05-04 13:33] LABS: Lipase 55 Units/L (11-82)
[2020-05-04] MEDS ORDERED: Ondansetron ODT 4 MG TAB.RAPDIS SL PRN (16:24)
[2020-05-04] MEDS: Insulin LISPRO 300 UNITS/3 ML VIAL SUBQ SCH (16:54)
[2020-05-04] MEDS: Insulin DETEMIR 100 UNIT/ML X5UNITS SUBQ SCH (20:27)
[2020-05-04] MEDS ORDERED: Insulin DETEMIR 100 UNIT/ML X5UNITS SUBQ SCH (21:00)
[2020-05-05 01:47] LABS: BUN/Creatinine Ratio 15 (6-26); Blood Urea Nitrogen 11 mg/dL (8-23); Carbon Dioxide 20 mEq/L (23-29); Chloride 111 mEq/L (98-107); Glucose 172 mg/dL (70-105); Osmolality,Calculated 291 (280-300); Sodium 139 mEq/L (136-145); eGFR For African Americans > 60 (> 60); eGFR For Non-African Americans > 60 (> 60)
[2020-05-05] MEDS: Pantoprazole 40 MG VIAL IVP SCH ×2 (06:28→17:18)
[2020-05-05] MEDS: *HR* Promethazine 25 MG/ML VIAL IM PRN (06:29)
[2020-05-05] MEDS: Insulin LISPRO 300 UNITS/3 ML VIAL SUBQ SCH ×3 (08:40→18:07)
[2020-05-05] MEDS: lisinopriL 5 MG TABLET PO SCH (08:40)
[2020-05-05] MEDS: *HR* Rivaroxaban 10 MG TABLET PO SCH (08:40)
[2020-05-05] MEDS: cefTRIAXone 1,000 MG in Water for inj. (sterile) 10 ML IVP SCH ×2 (08:43→09:46)
[2020-05-05] MEDS: Nystatin POWDER 30 GM BOTTLE TP SCH ×3 (08:44→21:45)
[2020-05-05] MEDS: Fluticasone Propionate Nasal 50 MCG/SPRAY BOTTLE NS SCH (08:45)
[2020-05-05] MEDS: Ondansetron 4 MG/2 ML VIAL IVP PRN (10:35)
[2020-05-05] MEDS: Insulin DETEMIR 100 UNIT/ML X5UNITS SUBQ SCH (21:46)
[2020-05-06] MEDS: Pantoprazole 40 MG VIAL IVP SCH ×2 (05:42→17:32)
[2020-05-06 06:52] LABS: Hematocrit 39.5 % (35.3-44.9); Mean Corpuscular HGB Conc 32.9 g/dL (31.6-35.5); Mean Corpuscular Hemoglobin 27.6 pg (28.0-33.3); Mean Corpuscular Volume 83.9 fL (83.0-100.0); Mean Platelet Volume 10.1 fL (9.4-12.4); Platelet Count 211 K/mcL (140-400); Red Blood Count 4.71 M/mcL (3.82-4.97); Red Cell Distribution Width 18.3 % (11.5-14.5); White Blood Count 8.4 K/mcL (4.3-11.1)
[2020-05-06 07:13] LABS: BUN/Creatinine Ratio 13 (6-26); Blood Urea Nitrogen 9 mg/dL (8-23); Calcium 8.4 mg/dL (8.6-10.3); Carbon Dioxide 21 mEq/L (23-29); Chloride 108 mEq/L (98-107); Glucose 169 mg/dL (70-105); Osmolality,Calculated 289 (280-300); Potassium 3.3 mEq/L (3.5-5.1); Sodium 138 mEq/L (136-145); eGFR For African Americans > 60 (> 60); eGFR For Non-African Americans > 60 (> 60)
[2020-05-06] MEDS: Insulin LISPRO 300 UNITS/3 ML VIAL SUBQ SCH ×3 (08:08→16:24)
[2020-05-06] MEDS: *HR* Rivaroxaban 10 MG TABLET PO SCH (08:16)
[2020-05-06] MEDS: lisinopriL 5 MG TABLET PO SCH (08:16)
[2020-05-06] MEDS: cefTRIAXone 1,000 MG in Water for inj. (sterile) 10 ML IVP SCH (09:51)
[2020-05-06] MEDS: Nystatin POWDER 30 GM BOTTLE TP SCH ×3 (09:53→20:52)
[2020-05-06] MEDS: Fluticasone Propionate Nasal 50 MCG/SPRAY BOTTLE NS SCH (09:53)
[2020-05-06] MEDS: Potassium Chloride Elixir 20 MEQ/15 ML UDC PO SCH (12:58)
[2020-05-06] MEDS ORDERED: D5% in Water 1,000 ML IVC PRN (13:46)
[2020-05-06] MEDS ORDERED: *HR* Dextrose 50 % in Water (Vial) 50 ML VIAL IVP PRN (13:46)
[2020-05-06] MEDS ORDERED: Dextrose Gel 15 GM/37.5 ML TUBE PO PRN ×2 (13:46)
[2020-05-06] MEDS ORDERED: Metoclopramide 10 MG/2 ML VIAL IVP PRN (15:21)
[2020-05-06] MEDS ORDERED: Metoclopramide 10 MG/10 ML UD.LIQ PO SCH (18:00)
[2020-05-06] MEDS: Insulin DETEMIR 100 UNIT/ML X5UNITS SUBQ SCH (20:29)
[2020-05-07 05:20] LABS: Basophils % 0.1 %; Eosinophils # 0.1 K/mcL (0.0-0.6); Eosinophils % 1.9 %; Hematocrit 36.1 % (35.3-44.9); Hemoglobin 11.6 g/dL (11.5-15.4); Immature Granulocytes % 0.4 % (0-4); Lymphocytes # 1.4 K/mcL (0.6-4.6); Lymphocytes % 19.1 %; Mean Corpuscular HGB Conc 32.1 g/dL (31.6-35.5); Mean Corpuscular Hemoglobin 26.8 pg (28.0-33.3); Mean Corpuscular Volume 83.4 fL (83.0-100.0); Mean Platelet Volume 9.7 fL (9.4-12.4); Monocytes # 0.6 K/mcL (0.0-1.3); Monocytes % 7.9 %; Neutrophils # 5.1 K/mcL (1.6-8.9); Platelet Count 209 K/mcL (140-400); Red Blood Count 4.33 M/mcL (3.82-4.97); Red Cell Distribution Width 18.3 % (11.5-14.5); Segmented Neutrophils % 70.6 %; White Blood Count 7.2 K/mcL (4.3-11.1)
[2020-05-07] MEDS: Pantoprazole 40 MG VIAL IVP SCH ×2 (05:28→16:38)
[2020-05-07 05:40] LABS: Alanine Aminotransferase 4 Units/L (7-52); Albumin 2.6 g/dL (3.5-5.7); Alkaline Phosphatase 83 Units/L (34-104); Aspartate Amino Transferase 6 Units/L (13-39); BUN/Creatinine Ratio 14 (6-26); Bilirubin,Total 0.4 mg/dL (0.3-1.0); Blood Urea Nitrogen 8 mg/dL (8-23); Calcium 8.1 mg/dL (8.6-10.3); Carbon Dioxide 23 mEq/L (23-29); Chloride 104 mEq/L (98-107); Globulin 2.7 g/dL (2.4-3.5); Glucose 176 mg/dL (70-105); Osmolality,Calculated 281 (280-300); Potassium 3.6 mEq/L (3.5-5.1); Sodium 134 mEq/L (136-145); Total Protein 5.3 g/dL (6.4-8.9); eGFR For African Americans > 60 (> 60); eGFR For Non-African Americans > 60 (> 60)
[2020-05-07] MEDS: cefTRIAXone 1,000 MG in Water for inj. (sterile) 10 ML IVP SCH (07:46)
[2020-05-07] MEDS: *HR* Rivaroxaban 10 MG TABLET PO SCH (07:47)
[2020-05-07] MEDS: lisinopriL 5 MG TABLET PO SCH (07:47)
[2020-05-07] MEDS: Insulin LISPRO 300 UNITS/3 ML VIAL SUBQ SCH ×3 (07:47→16:38)
[2020-05-07] MEDS: Nystatin POWDER 30 GM BOTTLE TP SCH ×2 (07:47→16:38)
[2020-05-07] MEDS: Fluticasone Propionate Nasal 50 MCG/SPRAY BOTTLE NS SCH (07:47)
[2020-05-07] MEDS: Ondansetron 4 MG/2 ML VIAL IVP PRN (07:53)
[2020-05-07 10:51] VITALS: BP 124/73
== END 2020-05-07 19:15 | disposition home or self-care (01) | DRG 871 ==
LOC: EMEROOARM 10:13 → 2NNU 10:13 → 3ANU 05-05 14:23
PROVIDERS: ADMIT Internal Medicine; ATTEND Internal Medicine
PROC: ENDOEBX (2020-05-03 12:00)

== ENCOUNTER 2021-05-16 21:27 | Inpatient (IN) ==
[2021-05-16] MEDS ORDERED: Ondansetron 4 MG/2 ML VIAL IVP ONE (21:47)
[2021-05-16 22:56] LABS: Influenza A PCR Negative (Negative); Influenza B PCR Negative (Negative); Resp. Syncytial Virus PCR Negative (Negative)
[2021-05-16] MEDS ORDERED: 0.9 % Sodium Chloride 1,000 ML ONE (23:00)
[2021-05-16] MEDS ORDERED: *HR* Heparin 10,000 UNIT/10 ML VIAL ONE (23:00)
[2021-05-16] MEDS ORDERED: Heparin 1,000 UNITS/500 mL 500 ML ONE (23:00)
[2021-05-16] MEDS ORDERED: Nitroglycerin 1,000 MCG/5 ML VIAL IV ONE (23:00)
[2021-05-16] MEDS ORDERED: ISOVUE-370 200 ML INFUS..BTL ONE (23:00)
[2021-05-16 23:05] LABS: SARS-CoV-2 by PCR (In House) Negative (Negative)
[2021-05-16 23:11] LABS: Basophils % 0.2 %; Eosinophils % 0.1 %; Hematocrit 47.7 % (35.3-44.9); Hemoglobin 15.3 g/dL (11.5-15.4); Immature Granulocytes % 0.5 % (0-4); Lymphocytes # 1.3 K/mcL (0.6-4.6); Lymphocytes % 7.6 %; Mean Corpuscular HGB Conc 32.1 g/dL (31.6-35.5); Mean Corpuscular Hemoglobin 27.1 pg (28.0-33.3); Mean Corpuscular Volume 84.4 fL (83.0-100.0); Mean Platelet Volume 10.4 fL (9.4-12.4); Monocytes # 1.2 K/mcL (0.0-1.3); Monocytes % 7.1 %; Neutrophils # 14.4 K/mcL (1.6-8.9); Platelet Count 424 K/mcL (140-400); Red Blood Count 5.65 M/mcL (3.82-4.97); Red Cell Distribution Width 15.2 % (11.5-14.5); Segmented Neutrophils % 84.5 %; White Blood Count 17.1 K/mcL (4.3-11.1)
[2021-05-16] MEDS ORDERED: *HR* Ticagrelor 90 MG TABLET PO ONE (23:18)
[2021-05-16] MEDS ORDERED: *HR* Heparin 5,000 UNIT/ML VIAL IVP ONE ×2 (23:18→23:30)
[2021-05-16] MEDS ORDERED: 0.9 % Sodium Chloride 1,000 ML IV ONE (23:18)
[2021-05-16] MEDS ORDERED: *HR* Heparin 5,000 UNIT/ML VIAL IVP PRN ×2 (23:18)
[2021-05-16] MEDS ORDERED: Aspirin 81 MG TAB.CHEW PO ONE (23:19)
[2021-05-16 23:23] LABS: INR 1.2; Prothrombin Time 13.7 Seconds (9.4-12.1)
[2021-05-16 23:25] LABS: Activated Partial Thrombo Time 30.8 Seconds (26.0-36.0)
[2021-05-16] MEDS: Aspirin 81 MG TAB.CHEW PO ONE ×2 (23:25→23:33)
[2021-05-16] MEDS: *HR* Ticagrelor 90 MG TABLET PO ONE ×2 (23:25→23:33)
[2021-05-16] MEDS ORDERED: Heparin 25,000UNIT/250ML 1/2NS 25,000 UNIT/250 ML IV.SOLN IVC SCH (23:30)
[2021-05-16 23:31] LABS: Albumin/Globulin Ratio 0.9 (1.1-2.2); Bilirubin,Total 0.5 mg/dL (0.3-1.0); Calcium 10.4 mg/dL (8.6-10.3); Chol/HDL Ratio 3.8 (0-4.9); Globulin 4.6 g/dL (2.4-3.5); Magnesium 2.2 mg/dL (1.6-2.6); Potassium 3.5 mEq/L (3.5-5.1); Total Protein 8.6 g/dL (6.4-8.9)
[2021-05-16 23:32] LABS: Troponin I 0.06 ng/mL (< 0.04)
[2021-05-16] MEDS ORDERED: *HR* FentaNYL (PF) 100 MCG/2 ML VIAL ONE (23:42)
[2021-05-16] MEDS ORDERED: Ondansetron 4 MG/2 ML VIAL ONE (23:42)
[2021-05-16] MEDS ORDERED: *HR* Midazolam HCl 2 MG/2 ML VIAL ONE (23:42)
[2021-05-16] MEDS ORDERED: Tirofiban 12.5 MG/250ML 12.5 MG/250 ML BAG ONE (23:50)
[2021-05-17] MEDS ORDERED: Perflutren Lipid Microsphere 1.3 ML in 0.9 % Sodium Chloride 8.7 ML IVP PRN (01:09)
[2021-05-17] MEDS ORDERED: 0.9 % Sodium Chloride 1,000 ML IVC SCH ×2 (01:15→10:30)
[2021-05-17] MEDS ORDERED: Tirofiban 12.5 MG/250ML 12.5 MG/250 ML BAG IVC SCH ×2 (01:15→12:15)
[2021-05-17] MEDS ORDERED: Ondansetron 4 MG/2 ML VIAL ONE (02:13)
[2021-05-17] MEDS: Ondansetron 4 MG/2 ML VIAL IVP PRN ×2 (02:15→09:03)
[2021-05-17] MEDS ORDERED: D5% in Water 1,000 ML IVC PRN (02:53)
[2021-05-17] MEDS ORDERED: *HR* Dextrose 50 % in Water (Syg) 50 ML SYRINGE IVP PRN (02:53)
[2021-05-17] MEDS ORDERED: Dextrose Gel 15 GM/37.5 ML TUBE PO PRN ×2 (02:53)
[2021-05-17] MEDS: Pantoprazole 40 MG VIAL IVP SCH ×2 (04:28→17:40)
[2021-05-17 05:41] LABS: Basophils % 0.2 %; Hematocrit 43.3 % (35.3-44.9); Hemoglobin 13.9 g/dL (11.5-15.4); Immature Granulocytes % 0.5 % (0-4); Lymphocytes # 1.3 K/mcL (0.6-4.6); Lymphocytes % 7.7 %; Mean Corpuscular HGB Conc 32.1 g/dL (31.6-35.5); Mean Corpuscular Hemoglobin 27.4 pg (28.0-33.3); Mean Corpuscular Volume 85.2 fL (83.0-100.0); Mean Platelet Volume 10.7 fL (9.4-12.4); Monocytes # 1.6 K/mcL (0.0-1.3); Monocytes % 9.1 %; Platelet Count 379 K/mcL (140-400); Red Blood Count 5.08 M/mcL (3.82-4.97); Red Cell Distribution Width 15.2 % (11.5-14.5); Segmented Neutrophils % 82.5 %
[2021-05-17 05:55] LABS: Albumin 3.7 g/dL (3.5-5.7); Albumin/Globulin Ratio 0.9 (1.1-2.2); Bilirubin,Direct 0.1 mg/dL (0.0-0.2); Bilirubin,Indirect 0.3 mg/dL (0.0-1.0); Bilirubin,Total 0.4 mg/dL (0.3-1.0); Total Protein 7.7 g/dL (6.4-8.9)
[2021-05-17 06:03] LABS: Calcium 9.5 mg/dL (8.6-10.3); Potassium 3.4 mEq/L (3.5-5.1); Troponin I 0.2 ng/mL (< 0.04)
[2021-05-17] MEDS: Insulin LISPRO 300 UNITS/3 ML VIAL SUBQ SCH ×3 (06:25→17:43)
[2021-05-17] MEDS ORDERED: *HR* Ticagrelor 90 MG TABLET PO ONE (07:00)
[2021-05-17] MEDS ORDERED: Aspirin 81 MG TAB.CHEW PO STA (08:57)
[2021-05-17] MEDS ORDERED: Cetaphil Lotion 473 ML BOTTLE TP SCH (09:00)
[2021-05-17] MEDS: Nystatin POWDER 30 GM BOTTLE TP SCH ×3 (10:43→20:59)
[2021-05-17 14:59] LABS: Bilirubin,Urine Negative (Negative); Blood,Urine Large (Negative); Clarity,Urine Ex.Turbid (Clear); Color,Urine Light-Brown (Yellow); Glucose,Urine (UA) Normal (Normal); Ketones,Urine Negative (Negative); Leukocyte Esterase,Urine Large (Negative); Nitrite,Urine Negative (Negative); PH,Urine 5.5 pH Units (5.0-8.0); Protein,Urine 200 mg/dL (Neg-Trace); Specific Gravity,Urine > 1.030 (1.010-1.025); Urobilinogen,Urine Normal (Normal)
[2021-05-17] MEDS ORDERED: Ondansetron 4 MG/2 ML VIAL IVP PRN (15:10)
[2021-05-17 16:16] LABS: Budding Yeast,Urine Present per hpf (None Seen); RBC,Urine Present per hpf (0-3); WBC,Urine Present per hpf (0-3)
[2021-05-17 16:17] LABS: Squamous Epithelial Cell,Urine Present per hpf (None-Few)
[2021-05-17 17:15] LABS: Calcium 9.4 mg/dL (8.6-10.3); Potassium 3.5 mEq/L (3.5-5.1)
[2021-05-17] MEDS: Ringers Solution, Lactated 1,000 ML IVC SCH (18:36)
[2021-05-17] MEDS: *HR* Ticagrelor 90 MG TABLET PO SCH (20:59)
[2021-05-18] MEDS: Insulin LISPRO 300 UNITS/3 ML VIAL SUBQ SCH ×4 (00:09→23:58)
[2021-05-18] MEDS: Ringers Solution, Lactated 1,000 ML IVC SCH ×3 (02:56→18:41)
[2021-05-18] MEDS: Pantoprazole 40 MG VIAL IVP SCH ×2 (05:41→18:41)
[2021-05-18 06:57] LABS: Basophils % 0.3 %; Eosinophils % 0.1 %; Hematocrit 40.8 % (35.3-44.9); Immature Granulocytes % 0.5 % (0-4); Lymphocytes # 1.5 K/mcL (0.6-4.6); Lymphocytes % 9.7 %; Mean Corpuscular HGB Conc 31.9 g/dL (31.6-35.5); Mean Corpuscular Hemoglobin 27.4 pg (28.0-33.3); Mean Corpuscular Volume 86.1 fL (83.0-100.0); Mean Platelet Volume 10.6 fL (9.4-12.4); Monocytes # 1.4 K/mcL (0.0-1.3); Monocytes % 9.4 %; Neutrophils # 12.3 K/mcL (1.6-8.9); Platelet Count 269 K/mcL (140-400); Red Blood Count 4.74 M/mcL (3.82-4.97); Red Cell Distribution Width 15.4 % (11.5-14.5); White Blood Count 15.3 K/mcL (4.3-11.1)
[2021-05-18] MEDS: *HR* Ticagrelor 90 MG TABLET PO SCH ×2 (08:27→19:55)
[2021-05-18] MEDS: Nystatin POWDER 30 GM BOTTLE TP SCH ×3 (08:38→19:55)
[2021-05-18] MEDS ORDERED: Aspirin 81 MG TAB.CHEW PO SCH (09:00)
[2021-05-18] MEDS ORDERED: Cangrelor tetrasodium 50 MG in 0.9 % Sodium Chloride 250 ML IVC SCH (09:30)
[2021-05-18] MEDS ORDERED: 0.9 % Sodium Chloride 1,000 ML ONE (10:58)
[2021-05-18] MEDS ORDERED: 0.9 % Sodium Chloride 1,000 ML IVC SCH (11:15)
[2021-05-18] MEDS ORDERED: Dextrose Gel 15 GM/37.5 ML TUBE PO PRN ×2 (12:11)
[2021-05-18] MEDS ORDERED: Perflutren Lipid Microsphere 1.3 ML in 0.9 % Sodium Chloride 8.7 ML IVP PRN (12:11)
[2021-05-18] MEDS ORDERED: Tirofiban 12.5 MG/250ML 12.5 MG/250 ML BAG IVC SCH (12:11)
[2021-05-18] MEDS ORDERED: D5% in Water 1,000 ML IVC PRN (12:11)
[2021-05-18] MEDS ORDERED: *HR* Dextrose 50 % in Water (Syg) 50 ML SYRINGE IVP PRN (12:11)
[2021-05-18] MEDS ORDERED: *HR* Propofol 200 MG/20 ML VIAL IVP ONE (12:46)
[2021-05-18] MEDS ORDERED: Lidocaine -MPF 2% 5 ML VIAL ONE ×2 (12:48→15:17)
[2021-05-18] MEDS: Cangrelor tetrasodium 50 MG in 0.9 % Sodium Chloride 250 ML IVC SCH (14:15)
[2021-05-18] MEDS: 0.9 % Sodium Chloride 1,000 ML IVC SCH ×2 (14:41→18:40)
[2021-05-18 17:28] LABS: Albumin 2.9 g/dL (3.5-5.7); Bilirubin,Total 0.4 mg/dL (0.3-1.0); Calcium 8.6 mg/dL (8.6-10.3); Globulin 2.8 g/dL (2.4-3.5); Potassium 3.4 mEq/L (3.5-5.1); Total Protein 5.7 g/dL (6.4-8.9)
[2021-05-18 22:48] LABS: Calcium 8.3 mg/dL (8.6-10.3); Potassium 4.3 mEq/L (3.5-5.1)
[2021-05-19] MEDS: 0.9 % Sodium Chloride 1,000 ML IVC SCH ×3 (01:04→11:05)
[2021-05-19] MEDS: Cangrelor tetrasodium 50 MG in 0.9 % Sodium Chloride 250 ML IVC SCH ×2 (01:07→16:41)
[2021-05-19 05:00] LABS: Basophils % 0.3 %; Eosinophils # 0.1 K/mcL (0.0-0.6); Eosinophils % 0.7 %; Hematocrit 35.8 % (35.3-44.9); Immature Granulocytes % 0.4 % (0-4); Lymphocytes # 1.1 K/mcL (0.6-4.6); Lymphocytes % 10.5 %; Mean Corpuscular HGB Conc 30.4 g/dL (31.6-35.5); Mean Corpuscular Hemoglobin 27.3 pg (28.0-33.3); Mean Corpuscular Volume 89.7 fL (83.0-100.0); Mean Platelet Volume 10.9 fL (9.4-12.4); Monocytes # 0.8 K/mcL (0.0-1.3); Neutrophils # 8.3 K/mcL (1.6-8.9); Platelet Count 247 K/mcL (140-400); Red Blood Count 3.99 M/mcL (3.82-4.97); Red Cell Distribution Width 15.6 % (11.5-14.5); Segmented Neutrophils % 80.1 %; White Blood Count 10.3 K/mcL (4.3-11.1)
[2021-05-19 05:03] LABS: Hemoglobin 10.9 g/dL (11.5-15.4)
[2021-05-19] MEDS: Insulin LISPRO 300 UNITS/3 ML VIAL SUBQ SCH ×3 (05:47→18:25)
[2021-05-19] MEDS: Pantoprazole 40 MG VIAL IVP SCH ×2 (05:54→17:39)
[2021-05-19 06:48] LABS: Albumin 2.7 g/dL (3.5-5.7); Albumin/Globulin Ratio 0.9 (1.1-2.2); Bilirubin,Total 0.4 mg/dL (0.3-1.0); Calcium 8.3 mg/dL (8.6-10.3); Potassium 3.9 mEq/L (3.5-5.1); Total Protein 5.7 g/dL (6.4-8.9)
[2021-05-19] MEDS: *HR* Ticagrelor 90 MG TABLET PO SCH ×2 (08:36→19:29)
[2021-05-19] MEDS: Aspirin 81 MG TAB.CHEW PO SCH (08:36)
[2021-05-19] MEDS: PARoxetine 30 MG TABLET PO SCH (08:37)
[2021-05-19] MEDS: Dapagliflozin Propanediol [Farxiga] 10 mg tablet PO SCH (08:37)
[2021-05-19] MEDS: Nystatin POWDER 30 GM BOTTLE TP SCH ×3 (10:23→21:00)
[2021-05-20] MEDS: Insulin LISPRO 300 UNITS/3 ML VIAL SUBQ SCH ×4 (00:30→18:51)
[2021-05-20] MEDS: 0.9 % Sodium Chloride 1,000 ML IVC SCH (02:37)
[2021-05-20] MEDS: Cangrelor tetrasodium 50 MG in 0.9 % Sodium Chloride 250 ML IVC SCH (04:34)
[2021-05-20 04:43] LABS: Albumin 2.6 g/dL (3.5-5.7); Bilirubin,Total 0.3 mg/dL (0.3-1.0); Calcium 7.8 mg/dL (8.6-10.3); Globulin 2.7 g/dL (2.4-3.5); Total Protein 5.3 g/dL (6.4-8.9)
[2021-05-20 04:50] LABS: Basophils % 0.4 %; Eosinophils # 0.3 K/mcL (0.0-0.6); Eosinophils % 3.1 %; Hematocrit 35.1 % (35.3-44.9); Hemoglobin 10.8 g/dL (11.5-15.4); Lymphocytes # 1.2 K/mcL (0.6-4.6); Lymphocytes % 14.7 %; Mean Corpuscular HGB Conc 30.8 g/dL (31.6-35.5); Mean Corpuscular Hemoglobin 27.6 pg (28.0-33.3); Mean Corpuscular Volume 89.5 fL (83.0-100.0); Mean Platelet Volume 10.4 fL (9.4-12.4); Monocytes # 0.8 K/mcL (0.0-1.3); Monocytes % 9.3 %; Nucleated Red Blood Cells 0.2 /100 WBC (0); Platelet Count 222 K/mcL (140-400); Red Blood Count 3.92 M/mcL (3.82-4.97); Red Cell Distribution Width 15.8 % (11.5-14.5); Segmented Neutrophils % 71.5 %; White Blood Count 8.4 K/mcL (4.3-11.1)
[2021-05-20] MEDS: Pantoprazole 40 MG VIAL IVP SCH ×2 (06:05→17:19)
[2021-05-20 09:32] LABS: Magnesium 1.6 mg/dL (1.6-2.6); Phosphorous 1.2 mg/dL (2.7-4.5)
[2021-05-20] MEDS: Aspirin 81 MG TAB.CHEW PO SCH (09:38)
[2021-05-20] MEDS: PARoxetine 30 MG TABLET PO SCH (09:38)
[2021-05-20] MEDS: *HR* Ticagrelor 90 MG TABLET PO SCH ×2 (09:38→21:35)
[2021-05-20] MEDS: Nystatin POWDER 30 GM BOTTLE TP SCH ×3 (09:38→21:35)
[2021-05-20] MEDS: Dapagliflozin Propanediol [Farxiga] 10 mg tablet PO SCH (09:39)
[2021-05-20] MEDS: Baclofen 10 MG TABLET PO SCH ×2 (09:49→17:20)
[2021-05-20] MEDS: Ondansetron 4 MG/2 ML VIAL IVP PRN (21:35)
[2021-05-21] MEDS: Insulin LISPRO 300 UNITS/3 ML VIAL SUBQ SCH ×4 (00:02→17:56)
[2021-05-21] MEDS: Pantoprazole 40 MG VIAL IVP SCH (05:05)
[2021-05-21] MEDS: Aspirin 81 MG TAB.CHEW PO SCH (08:04)
[2021-05-21] MEDS: Baclofen 10 MG TABLET PO SCH ×2 (08:04→16:46)
[2021-05-21] MEDS: PARoxetine 30 MG TABLET PO SCH (08:05)
[2021-05-21] MEDS: Ondansetron 4 MG/2 ML VIAL IVP PRN ×2 (08:10→19:55)
[2021-05-21] MEDS: Nystatin POWDER 30 GM BOTTLE TP SCH ×3 (08:11→23:31)
[2021-05-21] MEDS: Dapagliflozin Propanediol [Farxiga] 10 mg tablet PO SCH (08:13)
[2021-05-21 10:39] LABS: Hematocrit 38.4 % (35.3-44.9); Hemoglobin 11.8 g/dL (11.5-15.4); Mean Corpuscular HGB Conc 30.7 g/dL (31.6-35.5); Mean Corpuscular Hemoglobin 27.8 pg (28.0-33.3); Mean Corpuscular Volume 90.4 fL (83.0-100.0); Mean Platelet Volume 10.8 fL (9.4-12.4); Platelet Count 188 K/mcL (140-400); Red Blood Count 4.25 M/mcL (3.82-4.97); White Blood Count 8.2 K/mcL (4.3-11.1)
[2021-05-21 10:57] LABS: BUN/Creatinine Ratio 15 (6-26); Blood Urea Nitrogen 16 mg/dL (8-23); Calcium 7.6 mg/dL (8.6-10.3); Carbon Dioxide 21 mEq/L (23-29); Chloride 111 mEq/L (98-107); Glucose 261 mg/dL (70-105); Osmolality,Calculated 302 (280-300); Potassium 3.6 mEq/L (3.5-5.1); Sodium 141 mEq/L (136-145); eGFR For African Americans > 60 (> 60); eGFR For Non-African Americans 53 (> 60)
[2021-05-21] MEDS ORDERED: hydrOXYzine pamoate 25 MG CAPSULE PO PRN (11:13)
[2021-05-21 18:06] LABS: Bilirubin,Urine Negative (Negative); Blood,Urine Large (Negative); Clarity,Urine Ex.Turbid (Clear); Color,Urine Light-Yellow (Yellow); Glucose,Urine (UA) >=1000 mg/dL (Normal); Ketones,Urine Negative (Negative); Leukocyte Esterase,Urine Large (Negative); Nitrite,Urine Negative (Negative); PH,Urine 6.5 pH Units (5.0-8.0); Protein,Urine 100 mg/dL (Neg-Trace); Specific Gravity,Urine 1.012 (1.010-1.025); Urobilinogen,Urine Normal (Normal)
[2021-05-21 18:09] LABS: Bacteria,Urine Present per hpf (None-Few); Budding Yeast,Urine Present per hpf (None Seen); Mucus,Urine Present per lpf (None-Few); RBC,Urine Present per hpf (0-3); Renal Epithelial Cells,Urine Present per hpf (None-Few); Squamous Epithelial Cell,Urine Present per hpf (None-Few); Transitional Epi Cells,Urine Present per hpf (None-Few); WBC,Urine TNTC per hpf (0-3)
[2021-05-21 18:10] LABS: Hyaline Casts,Urine None Seen per lpf (None Seen)
[2021-05-22] MEDS: Insulin LISPRO 300 UNITS/3 ML VIAL SUBQ SCH ×4 (00:48→17:20)
[2021-05-22 04:53] LABS: Hematocrit 34.3 % (35.3-44.9); Hemoglobin 10.6 g/dL (11.5-15.4); Mean Corpuscular HGB Conc 30.9 g/dL (31.6-35.5); Mean Corpuscular Hemoglobin 26.6 pg (28.0-33.3); Mean Corpuscular Volume 86.2 fL (83.0-100.0); Mean Platelet Volume 10.4 fL (9.4-12.4); Platelet Count 195 K/mcL (140-400); Red Blood Count 3.98 M/mcL (3.82-4.97); Red Cell Distribution Width 15.9 % (11.5-14.5); White Blood Count 8.5 K/mcL (4.3-11.1)
[2021-05-22 04:58] LABS: BUN/Creatinine Ratio 14 (6-26); Blood Urea Nitrogen 15 mg/dL (8-23); Calcium 7.4 mg/dL (8.6-10.3); Carbon Dioxide 22 mEq/L (23-29); Chloride 111 mEq/L (98-107); Glucose 188 mg/dL (70-105); Osmolality,Calculated 298 (280-300); Potassium 3.7 mEq/L (3.5-5.1); Sodium 141 mEq/L (136-145); eGFR For African Americans > 60 (> 60); eGFR For Non-African Americans 51 (> 60)
[2021-05-22] MEDS: Baclofen 10 MG TABLET PO SCH ×2 (09:46→15:29)
[2021-05-22] MEDS: Aspirin 81 MG TAB.CHEW PO SCH (09:47)
[2021-05-22] MEDS: PARoxetine 30 MG TABLET PO SCH (09:47)
[2021-05-22] MEDS: Dapagliflozin Propanediol [Farxiga] 10 mg tablet PO SCH (09:48)
[2021-05-22] MEDS: Nystatin POWDER 30 GM BOTTLE TP SCH ×3 (09:48→22:12)
[2021-05-22] MEDS: Ondansetron 4 MG/2 ML VIAL IVP PRN (15:29)
[2021-05-23] MEDS: Insulin LISPRO 300 UNITS/3 ML VIAL SUBQ SCH ×4 (03:29→16:56)
[2021-05-23] MEDS: Ondansetron 4 MG/2 ML VIAL IVP PRN (04:26)
[2021-05-23 05:01] LABS: Hematocrit 35.7 % (35.3-44.9); Hemoglobin 11.1 g/dL (11.5-15.4); Mean Corpuscular HGB Conc 31.1 g/dL (31.6-35.5); Mean Corpuscular Hemoglobin 26.7 pg (28.0-33.3); Mean Platelet Volume 10.3 fL (9.4-12.4); Platelet Count 193 K/mcL (140-400); Red Blood Count 4.15 M/mcL (3.82-4.97); White Blood Count 7.2 K/mcL (4.3-11.1)
[2021-05-23 05:20] LABS: BUN/Creatinine Ratio 14 (6-26); Blood Urea Nitrogen 15 mg/dL (8-23); Calcium 7.3 mg/dL (8.6-10.3); Carbon Dioxide 23 mEq/L (23-29); Chloride 108 mEq/L (98-107); Glucose 251 mg/dL (70-105); Osmolality,Calculated 293 (280-300); Potassium 4.1 mEq/L (3.5-5.1); Sodium 137 mEq/L (136-145); eGFR For African Americans > 60 (> 60); eGFR For Non-African Americans 51 (> 60)
[2021-05-23] MEDS: Baclofen 10 MG TABLET PO SCH ×2 (08:53→16:54)
[2021-05-23] MEDS: PARoxetine 30 MG TABLET PO SCH (08:53)
[2021-05-23] MEDS: Aspirin 81 MG TAB.CHEW PO SCH (08:53)
[2021-05-23] MEDS: Dapagliflozin Propanediol [Farxiga] 10 mg tablet PO SCH (08:53)
[2021-05-23] MEDS: Nystatin POWDER 30 GM BOTTLE TP SCH ×3 (08:54→21:11)
[2021-05-23] MEDS: Ondansetron ODT 4 MG TAB.RAPDIS SL SCH ×3 (10:37→21:10)
[2021-05-23] MEDS: *HR* Heparin 5,000 UNIT/ML VIAL SQ SCH (16:54)
[2021-05-24] MEDS: *HR* Heparin 5,000 UNIT/ML VIAL SQ SCH ×3 (06:06→20:31)
[2021-05-24] MEDS: Insulin LISPRO 300 UNITS/3 ML VIAL SUBQ SCH ×4 (06:06→17:12)
[2021-05-24] MEDS: Ondansetron ODT 4 MG TAB.RAPDIS SL SCH ×3 (08:47→20:30)
[2021-05-24] MEDS: Baclofen 10 MG TABLET PO SCH ×2 (08:49→15:58)
[2021-05-24] MEDS ORDERED: Piperacillin/Tazobactam 3.375 GM in 0.9 % Sodium Chloride Mini Bag 100 ML IVPB SCH (08:49)
[2021-05-24] MEDS: Aspirin 81 MG TAB.CHEW PO SCH (08:51)
[2021-05-24] MEDS: Dapagliflozin Propanediol [Farxiga] 10 mg tablet PO SCH (08:51)
[2021-05-24] MEDS: PARoxetine 30 MG TABLET PO SCH (08:53)
[2021-05-24] MEDS: Nystatin POWDER 30 GM BOTTLE TP SCH ×3 (10:33→20:31)
[2021-05-24] MEDS ORDERED: D5% in Water 1,000 ML IVC PRN (11:23)
[2021-05-24] MEDS ORDERED: Dextrose Gel 15 GM/37.5 ML TUBE PO PRN ×2 (11:23)
[2021-05-24] MEDS ORDERED: hydrOXYzine pamoate 25 MG CAPSULE PO PRN (11:23)
[2021-05-24] MEDS ORDERED: Perflutren Lipid Microsphere 1.3 ML in 0.9 % Sodium Chloride 8.7 ML IVP PRN (11:23)
[2021-05-24] MEDS ORDERED: *HR* Dextrose 50 % in Water (Syg) 50 ML SYRINGE IVP PRN (11:23)
[2021-05-24] MEDS ORDERED: Insulin LISPRO 300 UNITS/3 ML VIAL SUBQ SCH ×2 (11:30)
[2021-05-24] MEDS ORDERED: *HR* Heparin 5,000 UNIT/ML VIAL SQ SCH (14:00)
[2021-05-24] MEDS: polyethylene glycoL 3350 17 GM POWD.PACK PO SCH (15:56)
[2021-05-24] MEDS: Piperacillin/Tazobactam 3.375 GM in 0.9 % Sodium Chloride Mini Bag 100 ML IVPB SCH (17:15)
[2021-05-24] MEDS: Insulin DETEMIR 100 UNIT/ML X5UNITS SUBQ SCH (20:36)
[2021-05-25] MEDS: Piperacillin/Tazobactam 3.375 GM in 0.9 % Sodium Chloride Mini Bag 100 ML IVPB SCH ×3 (00:09→16:21)
[2021-05-25 03:57] LABS: Hemoglobin 10.2 g/dL (11.5-15.4); Mean Corpuscular HGB Conc 31.9 g/dL (31.6-35.5); Mean Corpuscular Hemoglobin 27.3 pg (28.0-33.3); Mean Corpuscular Volume 85.8 fL (83.0-100.0); Mean Platelet Volume 10.7 fL (9.4-12.4); Platelet Count 185 K/mcL (140-400); Red Blood Count 3.73 M/mcL (3.82-4.97); White Blood Count 6.9 K/mcL (4.3-11.1)
[2021-05-25 04:10] LABS: BUN/Creatinine Ratio 13 (6-26); Blood Urea Nitrogen 13 mg/dL (8-23); Calcium 7.6 mg/dL (8.6-10.3); Carbon Dioxide 25 mEq/L (23-29); Chloride 109 mEq/L (98-107); Glucose 232 mg/dL (70-105); Osmolality,Calculated 296 (280-300); Potassium 4.1 mEq/L (3.5-5.1); Sodium 139 mEq/L (136-145); eGFR For African Americans > 60 (> 60); eGFR For Non-African Americans 53 (> 60)
[2021-05-25] MEDS: *HR* Heparin 5,000 UNIT/ML VIAL SQ SCH ×3 (05:09→20:14)
[2021-05-25] MEDS: Ondansetron ODT 4 MG TAB.RAPDIS SL SCH ×3 (08:00→20:14)
[2021-05-25] MEDS: Nystatin POWDER 30 GM BOTTLE TP SCH ×3 (08:00→21:53)
[2021-05-25] MEDS: Baclofen 10 MG TABLET PO SCH ×2 (08:00→16:18)
[2021-05-25] MEDS: Patient Taking Own Medication 1 EACH PO SCH (08:23)
[2021-05-25] MEDS: Insulin LISPRO 300 UNITS/3 ML VIAL SUBQ SCH ×3 (08:35→16:18)
[2021-05-25] MEDS ORDERED: *HR* Propofol 200 MG/20 ML VIAL IVP ONE (11:52)
[2021-05-25] MEDS ORDERED: Lidocaine -MPF 2% 5 ML VIAL ONE (11:52)
[2021-05-25] MEDS: PARoxetine 30 MG TABLET PO SCH (13:03)
[2021-05-25] MEDS: Aspirin 81 MG TAB.CHEW PO SCH (13:03)
[2021-05-25] MEDS: polyethylene glycoL 3350 17 GM POWD.PACK PO SCH (13:06)
[2021-05-25] MEDS: Insulin DETEMIR 100 UNIT/ML X5UNITS SUBQ SCH (20:22)
[2021-05-26] MEDS: Piperacillin/Tazobactam 3.375 GM in 0.9 % Sodium Chloride Mini Bag 100 ML IVPB SCH ×4 (00:34→23:43)
[2021-05-26] MEDS: *HR* Heparin 5,000 UNIT/ML VIAL SQ SCH ×3 (05:13→20:20)
[2021-05-26] MEDS: Aspirin 81 MG TAB.CHEW PO SCH (10:06)
[2021-05-26] MEDS: Nystatin POWDER 30 GM BOTTLE TP SCH ×3 (10:07→19:26)
[2021-05-26] MEDS: Ondansetron ODT 4 MG TAB.RAPDIS SL SCH (10:07)
[2021-05-26] MEDS: Baclofen 10 MG TABLET PO SCH ×2 (10:07→16:26)
[2021-05-26] MEDS: polyethylene glycoL 3350 17 GM POWD.PACK PO SCH (10:07)
[2021-05-26] MEDS: PARoxetine 30 MG TABLET PO SCH (10:07)
[2021-05-26] MEDS: Patient Taking Own Medication 1 EACH PO SCH (10:07)
[2021-05-26] MEDS: Insulin LISPRO 300 UNITS/3 ML VIAL SUBQ SCH ×3 (10:08→16:26)
[2021-05-26 12:11] LABS: Basophils % 0.3 %; Eosinophils # 0.2 K/mcL (0.0-0.6); Eosinophils % 3.1 %; Hematocrit 33.5 % (35.3-44.9); Hemoglobin 10.3 g/dL (11.5-15.4); Immature Granulocytes % 0.6 % (0-4); Lymphocytes % 27.8 %; Mean Corpuscular HGB Conc 30.7 g/dL (31.6-35.5); Mean Corpuscular Hemoglobin 26.8 pg (28.0-33.3); Mean Platelet Volume 10.6 fL (9.4-12.4); Monocytes # 0.5 K/mcL (0.0-1.3); Monocytes % 7.4 %; Neutrophils # 4.3 K/mcL (1.6-8.9); Platelet Count 210 K/mcL (140-400); Red Blood Count 3.85 M/mcL (3.82-4.97); Red Cell Distribution Width 16.6 % (11.5-14.5); Segmented Neutrophils % 60.8 %; White Blood Count 7.1 K/mcL (4.3-11.1)
[2021-05-26 12:28] LABS: BUN/Creatinine Ratio 10 (6-26); Blood Urea Nitrogen 10 mg/dL (8-23); Calcium 7.6 mg/dL (8.6-10.3); Carbon Dioxide 24 mEq/L (23-29); Chloride 107 mEq/L (98-107); Glucose 230 mg/dL (70-105); Magnesium 1.2 mg/dL (1.6-2.6); Osmolality,Calculated 294 (280-300); Potassium 3.9 mEq/L (3.5-5.1); Sodium 139 mEq/L (136-145); eGFR For African Americans > 60 (> 60); eGFR For Non-African Americans 53 (> 60)
[2021-05-26] MEDS: Insulin DETEMIR 100 UNIT/ML X5UNITS SUBQ SCH (20:20)
[2021-05-27] MEDS: *HR* Heparin 5,000 UNIT/ML VIAL SQ SCH ×3 (05:14→20:41)
[2021-05-27] MEDS: Piperacillin/Tazobactam 3.375 GM in 0.9 % Sodium Chloride Mini Bag 100 ML IVPB SCH ×2 (07:44→16:30)
[2021-05-27] MEDS: Aspirin 81 MG TAB.CHEW PO SCH (07:44)
[2021-05-27] MEDS: PARoxetine 30 MG TABLET PO SCH (07:45)
[2021-05-27] MEDS: Baclofen 10 MG TABLET PO SCH ×2 (07:47→16:26)
[2021-05-27] MEDS: polyethylene glycoL 3350 17 GM POWD.PACK PO SCH (07:47)
[2021-05-27] MEDS: Nystatin POWDER 30 GM BOTTLE TP SCH ×3 (07:47→20:33)
[2021-05-27] MEDS: Insulin LISPRO 300 UNITS/3 ML VIAL SUBQ SCH ×3 (07:48→16:29)
[2021-05-27] MEDS: Patient Taking Own Medication 1 EACH PO SCH (07:48)
[2021-05-27] MEDS: Insulin DETEMIR 100 UNIT/ML X5UNITS SUBQ SCH (20:33)
[2021-05-28] MEDS: Piperacillin/Tazobactam 3.375 GM in 0.9 % Sodium Chloride Mini Bag 100 ML IVPB SCH (00:15)
[2021-05-28] MEDS: Insulin LISPRO 300 UNITS/3 ML VIAL SUBQ SCH ×2 (09:59→12:26)
[2021-05-28] MEDS: PARoxetine 30 MG TABLET PO SCH (10:01)
[2021-05-28] MEDS: Aspirin 81 MG TAB.CHEW PO SCH (10:01)
[2021-05-28] MEDS: Patient Taking Own Medication 1 EACH PO SCH (10:02)
[2021-05-28] MEDS: polyethylene glycoL 3350 17 GM POWD.PACK PO SCH (10:02)
[2021-05-28] MEDS: Nystatin POWDER 30 GM BOTTLE TP SCH ×2 (10:02→15:39)
[2021-05-28] MEDS: Baclofen 10 MG TABLET PO SCH ×2 (10:03→15:39)
[2021-05-28] MEDS ORDERED: Milk and Molasses Enema 200 ML RC ONE (12:12)
[2021-05-28] MEDS: *HR* Heparin 5,000 UNIT/ML VIAL SQ SCH (15:39)
[2021-05-28 15:57] VITALS: BP 133/88; PULSE 65; TEMP 97.7; O2SAT 98
[2021-06-12] MEDS ORDERED: Cyanocobalamin (B-12) 1,000 MCG/ML VIAL IM SCH ×2 (09:00)
== END 2021-05-28 16:28 | disposition home health service (06) | DRG 246 ==
LOC: EMEROOARM 21:27 → ICNU 23:34 → SUATTDRO 23:47 → ICNU 23:47 → 2NNU 05-18 14:01 → 2ANU 05-21 17:40
PROVIDERS: ADMIT Internal Medicine; ATTEND Internal Medicine
PROC: ENDOEBX (2021-05-18 13:00)

== ENCOUNTER 2021-05-30 15:56 | Observation (INO) ==
[2021-05-30] MEDS ORDERED: Ondansetron 4 MG/2 ML VIAL IVP ONE (17:35)
[2021-05-30 18:54] LABS: Basophils % 0.4 %; Eosinophils # 0.2 K/mcL (0.0-0.6); Eosinophils % 1.8 %; Hematocrit 36.8 % (35.3-44.9); Hemoglobin 11.7 g/dL (11.5-15.4); Immature Granulocytes % 0.4 % (0-4); Lymphocytes # 1.9 K/mcL (0.6-4.6); Lymphocytes % 23.4 %; Mean Corpuscular HGB Conc 31.8 g/dL (31.6-35.5); Mean Corpuscular Hemoglobin 27.4 pg (28.0-33.3); Mean Corpuscular Volume 86.2 fL (83.0-100.0); Monocytes # 0.4 K/mcL (0.0-1.3); Monocytes % 5.1 %; Neutrophils # 5.7 K/mcL (1.6-8.9); Platelet Count 301 K/mcL (140-400); Red Blood Count 4.27 M/mcL (3.82-4.97); Red Cell Distribution Width 17.7 % (11.5-14.5); Segmented Neutrophils % 68.9 %; White Blood Count 8.3 K/mcL (4.3-11.1)
[2021-05-30 18:59] LABS: Bacteria,Urine Few per hpf (None-Few); Bilirubin,Urine Negative (Negative); Blood,Urine Small (Negative); Clarity,Urine Ex.Turbid (Clear); Color,Urine Yellow (Yellow); Glucose,Urine (UA) 500 mg/dL (Normal); Hyaline Casts,Urine Many per lpf (None Seen); Ketones,Urine Negative (Negative); Leukocyte Esterase,Urine Large (Negative); Mucus,Urine Few per lpf (None-Few); Nitrite,Urine Negative (Negative); PH,Urine 7.5 pH Units (5.0-8.0); Protein,Urine 100 mg/dL (Neg-Trace); RBC,Urine 30-50 per hpf (0-3); Specific Gravity,Urine 1.013 (1.010-1.025); Squamous Epithelial Cell,Urine Moderate per hpf (None-Few); Transitional Epi Cells,Urine Moderate per hpf (None-Few); Urobilinogen,Urine Normal (Normal); WBC,Urine TNTC per hpf (0-3)
[2021-05-30 19:20] LABS: Alanine Aminotransferase 9 Units/L (7-52); Alkaline Phosphatase 164 Units/L (34-104); Aspartate Amino Transferase 13 Units/L (13-39); BUN/Creatinine Ratio 9 (6-26); Bilirubin,Indirect 0.3 mg/dL (0.0-1.0); Bilirubin,Total 0.3 mg/dL (0.3-1.0); Blood Urea Nitrogen 8 mg/dL (8-23); Calcium 9.1 mg/dL (8.6-10.3); Carbon Dioxide 26 mEq/L (23-29); Chloride 104 mEq/L (98-107); Globulin 3.1 g/dL (2.4-3.5); Glucose 203 mg/dL (70-105); Lipase 10 Units/L (11-82); Osmolality,Calculated 292 (280-300); Potassium 3.8 mEq/L (3.5-5.1); Sodium 139 mEq/L (136-145); Total Protein 6.1 g/dL (6.4-8.9); eGFR For African Americans > 60 (> 60); eGFR For Non-African Americans > 60 (> 60)
[2021-05-30] MEDS ORDERED: cefTRIAXone 1,000 MG in Water for inj. (sterile) 10 ML IVP ONE (19:32)
[2021-05-30 19:58] LABS: Adenovirus Not Detected (Not Detect); Bordetella Pertussis Not Detected (Not Detect); Chlamydophila pneumoniae Not Detected (Not Detect); Coronavirus 229E Not Detected (Not Detect); Coronavirus HKU1 Not Detected (Not Detect); Coronavirus NL63 Not Detected (Not Detect); Coronavirus OC43 Not Detected (Not Detect); Human Metapneumovirus Not Detected (Not Detect); Human Rhinovirus/Enterovirus Not Detected (Not Detect); Influenza A Subtype 2009 H1 Not Detected (Not Detect); Influenza B Not Detected (Not Detect); Mycoplasma pneumoniae Not Detected (Not Detect); Parainfluenza Virus 1 Not Detected (Not Detect); Parainfluenza Virus 2 Not Detected (Not Detect); Parainfluenza Virus 3 Not Detected (Not Detect); Parainfluenza Virus 4 Not Detected (Not Detect); Respiratory Syncytial Virus Not Detected (Not Detect); SARS-CoV-2 Not Detected (Not Detect)
[2021-05-30] MEDS ORDERED: Isovue-370 500 ML BOTTLE IVP ONE (20:23)
[2021-05-31] MEDS ORDERED: Acetaminophen 325 MG TABLET PO PRN (00:24)
[2021-05-31] MEDS ORDERED: *HR* OxyCODONE Immed Rel 5 MG TABLET PO PRN (00:24)
[2021-05-31] MEDS ORDERED: Melatonin 3 MG TABLET PO PRN (00:24)
[2021-05-31] MEDS ORDERED: *HR* HYDROcodone/Acet 5/325 mg TABLET PO PRN (00:24)
[2021-05-31] MEDS ORDERED: Naloxone 0.4 MG/ML INJ IVP PRN (00:24)
[2021-05-31] MEDS ORDERED: *HR* Promethazine 25 MG/ML VIAL IM PRN (00:24)
[2021-05-31] MEDS: Ringers Solution, Lactated 1,000 ML IVC SCH ×4 (01:48→20:53)
[2021-05-31] MEDS ORDERED: *HR* Dextrose 50 % in Water (Syg) 50 ML SYRINGE IVP PRN (02:20)
[2021-05-31] MEDS ORDERED: Dextrose Gel 15 GM/37.5 ML TUBE PO PRN ×2 (02:20)
[2021-05-31] MEDS ORDERED: D5% in Water 1,000 ML IVC PRN (02:20)
[2021-05-31] MEDS: Insulin LISPRO 300 UNITS/3 ML VIAL SUBQ SCH ×3 (05:52→17:59)
[2021-05-31] MEDS: Pantoprazole 40 MG VIAL IVP SCH ×2 (06:12→17:03)
[2021-05-31] MEDS: cefTRIAXone 1,000 MG in 0.9 % Sodium Chloride Mini Bag 100 ML IVPB SCH (10:06)
[2021-05-31] MEDS: Aspirin 81 MG TAB.CHEW PO SCH (10:06)
[2021-05-31] MEDS: Sucralfate 1 GM TABLET PO SCH ×5 (10:08→20:36)
[2021-05-31] MEDS: Ondansetron 4 MG/2 ML VIAL IVP PRN (10:14)
[2021-05-31 12:38] LABS: White Blood Count 7.2 K/mcL (4.3-11.1)
[2021-05-31 12:39] LABS: Basophils % 0.4 %; Eosinophils # 0.2 K/mcL (0.0-0.6); Eosinophils % 2.3 %; Hematocrit 33.3 % (35.3-44.9); Hemoglobin 10.6 g/dL (11.5-15.4); Immature Granulocytes % 0.3 % (0-4); Lymphocytes # 1.5 K/mcL (0.6-4.6); Lymphocytes % 20.7 %; Mean Corpuscular HGB Conc 31.8 g/dL (31.6-35.5); Mean Corpuscular Volume 87.9 fL (83.0-100.0); Monocytes # 0.4 K/mcL (0.0-1.3); Neutrophils # 5.2 K/mcL (1.6-8.9); Platelet Count 287 K/mcL (140-400); Red Blood Count 3.79 M/mcL (3.82-4.97); Segmented Neutrophils % 71.3 %
[2021-05-31 12:47] LABS: Prothrombin Time 11.4 Seconds (9.4-12.1)
[2021-05-31 13:03] LABS: BUN/Creatinine Ratio 9 (6-26); Blood Urea Nitrogen 8 mg/dL (8-23); Calcium 8.4 mg/dL (8.6-10.3); Carbon Dioxide 26 mEq/L (23-29); Chloride 107 mEq/L (98-107); Glucose 167 mg/dL (70-105); Magnesium 1.6 mg/dL (1.6-2.6); Osmolality,Calculated 292 (280-300); Potassium 4.2 mEq/L (3.5-5.1); Sodium 140 mEq/L (136-145); eGFR For African Americans > 60 (> 60); eGFR For Non-African Americans > 60 (> 60)
[2021-05-31] MEDS: Insulin DETEMIR 100 UNIT/ML X5UNITS SUBQ SCH (20:37)
[2021-05-31] MEDS: Miconazole 2% ointment 141 APPL/141 GM TUBE TP SCH (20:47)
[2021-06-01] MEDS: Insulin LISPRO 300 UNITS/3 ML VIAL SUBQ SCH ×5 (00:40→21:38)
[2021-06-01] MEDS: Pantoprazole 40 MG VIAL IVP SCH ×2 (04:11→17:07)
[2021-06-01] MEDS: Aspirin 81 MG TAB.CHEW PO SCH (07:41)
[2021-06-01] MEDS: Sucralfate 1 GM TABLET PO SCH ×4 (07:41→21:36)
[2021-06-01] MEDS: cefTRIAXone 1,000 MG in 0.9 % Sodium Chloride Mini Bag 100 ML IVPB SCH (07:42)
[2021-06-01] MEDS: Miconazole 2% ointment 141 APPL/141 GM TUBE TP SCH ×2 (07:43→22:00)
[2021-06-01] MEDS: Ertapenem 1,000 MG in 0.9 % Sodium Chloride Mini Bag 100 ML IVPB SCH (08:48)
[2021-06-01] MEDS: Insulin DETEMIR 100 UNIT/ML X5UNITS SUBQ SCH (21:37)
[2021-06-02] MEDS: Ondansetron 4 MG/2 ML VIAL IVP PRN (01:47)
[2021-06-02 05:55] LABS: Basophils % 0.4 %; Eosinophils # 0.2 K/mcL (0.0-0.6); Eosinophils % 3.1 %; Hematocrit 31.7 % (35.3-44.9); Hemoglobin 10.3 g/dL (11.5-15.4); Immature Granulocytes % 0.4 % (0-4); Lymphocytes # 1.5 K/mcL (0.6-4.6); Lymphocytes % 22.5 %; Mean Corpuscular HGB Conc 32.5 g/dL (31.6-35.5); Mean Corpuscular Hemoglobin 27.8 pg (28.0-33.3); Mean Corpuscular Volume 85.4 fL (83.0-100.0); Monocytes # 0.5 K/mcL (0.0-1.3); Neutrophils # 4.5 K/mcL (1.6-8.9); Platelet Count 248 K/mcL (140-400); Red Blood Count 3.71 M/mcL (3.82-4.97); Red Cell Distribution Width 17.6 % (11.5-14.5); Segmented Neutrophils % 66.6 %; White Blood Count 6.8 K/mcL (4.3-11.1)
[2021-06-02] MEDS: Pantoprazole 40 MG VIAL IVP SCH ×2 (05:56→18:47)
[2021-06-02] MEDS: *HR* Enoxaparin 40 MG/0.4 ML SYRINGE SQ SCH (05:56)
[2021-06-02 06:03] LABS: BUN/Creatinine Ratio 10 (6-26); Blood Urea Nitrogen 9 mg/dL (8-23); Calcium 8.4 mg/dL (8.6-10.3); Carbon Dioxide 22 mEq/L (23-29); Chloride 104 mEq/L (98-107); Glucose 215 mg/dL (70-105); Osmolality,Calculated 283 (280-300); Potassium 4.5 mEq/L (3.5-5.1); Sodium 134 mEq/L (136-145); eGFR For African Americans > 60 (> 60); eGFR For Non-African Americans > 60 (> 60)
[2021-06-02] MEDS: Sucralfate 1 GM TABLET PO SCH ×4 (07:45→21:22)
[2021-06-02] MEDS: Ertapenem 1,000 MG in 0.9 % Sodium Chloride Mini Bag 100 ML IVPB SCH (07:46)
[2021-06-02] MEDS: Aspirin 81 MG TAB.CHEW PO SCH (07:52)
[2021-06-02] MEDS: Miconazole 2% ointment 141 APPL/141 GM TUBE TP SCH ×2 (07:53→21:30)
[2021-06-02] MEDS: Insulin LISPRO 300 UNITS/3 ML VIAL SUBQ SCH ×4 (09:34→21:29)
[2021-06-02 21:12] LABS: Magnesium 1.5 mg/dL (1.6-2.6)
[2021-06-02] MEDS: Insulin DETEMIR 100 UNIT/ML X5UNITS SUBQ SCH (21:22)
[2021-06-03] MEDS: *HR* Enoxaparin 40 MG/0.4 ML SYRINGE SQ SCH (06:17)
[2021-06-03] MEDS: Pantoprazole 40 MG VIAL IVP SCH (06:17)
[2021-06-03 07:14] VITALS: BP 132/70; PULSE 73; TEMP 98; O2SAT 95
[2021-06-03] MEDS: Aspirin 81 MG TAB.CHEW PO SCH (07:50)
[2021-06-03] MEDS: Sucralfate 1 GM TABLET PO SCH ×3 (07:50→18:00)
[2021-06-03] MEDS: Ertapenem 1,000 MG in 0.9 % Sodium Chloride Mini Bag 100 ML IVPB SCH (07:51)
[2021-06-03] MEDS: Insulin LISPRO 300 UNITS/3 ML VIAL SUBQ SCH ×3 (08:01→18:00)
[2021-06-03] MEDS: Miconazole 2% ointment 141 APPL/141 GM TUBE TP SCH (09:54)
[2021-06-03 15:28] LABS: Adenovirus Not Detected (Not Detect); Bordetella Pertussis Not Detected (Not Detect); Chlamydophila pneumoniae Not Detected (Not Detect); Coronavirus 229E Not Detected (Not Detect); Coronavirus HKU1 Not Detected (Not Detect); Coronavirus NL63 Not Detected (Not Detect); Coronavirus OC43 Not Detected (Not Detect); Human Metapneumovirus Not Detected (Not Detect); Human Rhinovirus/Enterovirus Not Detected (Not Detect); Influenza A Subtype 2009 H1 Not Detected (Not Detect); Influenza B Not Detected (Not Detect); Mycoplasma pneumoniae Not Detected (Not Detect); Parainfluenza Virus 1 Not Detected (Not Detect); Parainfluenza Virus 2 Not Detected (Not Detect); Parainfluenza Virus 3 Not Detected (Not Detect); Parainfluenza Virus 4 Not Detected (Not Detect); Respiratory Syncytial Virus Not Detected (Not Detect); SARS-CoV-2 Not Detected (Not Detect)
== END 2021-06-03 19:49 ==
LOC: EMEROOARM 15:56 → 3ANU 15:56 → SUATTDRO 23:31 → 3ANU 05-31 00:15
PROVIDERS: ADMIT Internal Medicine; ATTEND Internal Medicine

== ENCOUNTER 2021-12-08 09:31 | Observation (INO) ==
[2021-12-08] MEDS ORDERED: Morphine Sulfate 2 MG/ML SYRINGE IVP PRN (17:11)
[2021-12-08 17:14] LABS: Hematocrit 28.7 % (35.3-44.9); Hemoglobin 8.8 g/dL (11.5-15.4); Mean Corpuscular HGB Conc 30.7 g/dL (31.6-35.5); Mean Corpuscular Hemoglobin 25.1 pg (28.0-33.3); Mean Platelet Volume 9.2 fL (9.4-12.4); Platelet Count 232 K/mcL (140-400); Red Cell Distribution Width 17.9 % (11.5-14.5); White Blood Count 6.8 K/mcL (4.3-11.1)
[2021-12-08 17:34] LABS: Calcium 8.6 mg/dL (8.6-10.3); Potassium 4.7 mEq/L (3.5-5.1)
[2021-12-08] MEDS ORDERED: Acetaminophen 325 MG TABLET PO PRN (17:59)
[2021-12-08] MEDS ORDERED: Ondansetron 4 MG/2 ML VIAL IVP PRN (17:59)
[2021-12-08] MEDS ORDERED: Naloxone 0.4 MG/ML INJ IVP PRN (17:59)
[2021-12-08] MEDS ORDERED: D5% in Water 1,000 ML IVC PRN (18:03)
[2021-12-08] MEDS ORDERED: Dextrose Gel 15 GM/37.5 ML TUBE PO PRN ×2 (18:03)
[2021-12-08] MEDS ORDERED: *HR* Dextrose 50 % in Water (Syg) 50 ML SYRINGE IVP PRN (18:03)
[2021-12-08] MEDS ORDERED: Nitroglycerin 0.4 MG TAB.SUBL SL PRN (18:05)
[2021-12-09] MEDS ORDERED: Naloxone 0.4 MG/ML INJ IVP PRN (00:54)
[2021-12-09 05:02] LABS: Calcium 8.6 mg/dL (8.6-10.3); Magnesium 1.7 mg/dL (1.6-2.6); Phosphorous 3.6 mg/dL (2.7-4.5); Potassium 4.2 mEq/L (3.5-5.1)
[2021-12-09 05:08] LABS: Basophils % 0.4 %; Eosinophils % 0.7 %; Hematocrit 27.1 % (35.3-44.9); Hemoglobin 8.4 g/dL (11.5-15.4); Immature Granulocytes % 0.4 % (0-4); Lymphocytes # 0.8 K/mcL (0.6-4.6); Lymphocytes % 13.3 %; Mean Corpuscular Hemoglobin 25.1 pg (28.0-33.3); Mean Corpuscular Volume 80.9 fL (83.0-100.0); Mean Platelet Volume 9.5 fL (9.4-12.4); Monocytes # 0.5 K/mcL (0.0-1.3); Monocytes % 8.3 %; Neutrophils # 4.4 K/mcL (1.6-8.9); Platelet Count 236 K/mcL (140-400); Red Blood Count 3.35 M/mcL (3.82-4.97); Red Cell Distribution Width 17.7 % (11.5-14.5); Segmented Neutrophils % 76.9 %; White Blood Count 5.7 K/mcL (4.3-11.1)
[2021-12-09] MEDS: Insulin LISPRO 300 UNITS/3 ML VIAL SUBQ SCH ×3 (07:31→16:40)
[2021-12-09] MEDS: lisinopriL 5 MG TABLET PO SCH (07:38)
[2021-12-09] MEDS: PARoxetine 10 MG TABLET PO SCH (07:39)
[2021-12-09] MEDS: Aspirin 81 MG TAB.CHEW PO SCH (10:10)
[2021-12-10] MEDS ORDERED: Cyanocobalamin (B-12) 1,000 MCG/ML VIAL IM SCH (09:00)
[2021-12-10] MEDS: PARoxetine 10 MG TABLET PO SCH (10:21)
[2021-12-10] MEDS: lisinopriL 5 MG TABLET PO SCH (10:21)
[2021-12-10] MEDS: Aspirin 81 MG TAB.CHEW PO SCH (10:22)
[2021-12-10] MEDS: Insulin LISPRO 300 UNITS/3 ML VIAL SUBQ SCH ×2 (13:36→13:37)
[2021-12-10 14:36] LABS: Basophils % 0.3 %; Eosinophils # 0.1 K/mcL (0.0-0.6); Eosinophils % 1.7 %; Hematocrit 28.5 % (35.3-44.9); Hemoglobin 8.9 g/dL (11.5-15.4); Immature Granulocytes % 0.3 % (0-4); Lymphocytes # 1.1 K/mcL (0.6-4.6); Lymphocytes % 18.4 %; Mean Corpuscular HGB Conc 31.2 g/dL (31.6-35.5); Mean Corpuscular Hemoglobin 25.1 pg (28.0-33.3); Mean Corpuscular Volume 80.3 fL (83.0-100.0); Mean Platelet Volume 9.6 fL (9.4-12.4); Monocytes # 0.6 K/mcL (0.0-1.3); Monocytes % 10.3 %; Platelet Count 251 K/mcL (140-400); Red Blood Count 3.55 M/mcL (3.82-4.97); Red Cell Distribution Width 17.7 % (11.5-14.5); White Blood Count 5.8 K/mcL (4.3-11.1)
[2021-12-10 14:38] LABS: Platelet Estimate Normal (Normal)
[2021-12-10 14:52] LABS: Calcium 8.5 mg/dL (8.6-10.3); Potassium 4.9 mEq/L (3.5-5.1)
[2021-12-11 05:17] LABS: Basophils % 0.6 %; Eosinophils # 0.1 K/mcL (0.0-0.6); Eosinophils % 1.7 %; Hematocrit 28.1 % (35.3-44.9); Hemoglobin 8.7 g/dL (11.5-15.4); Immature Granulocytes % 0.2 % (0-4); Lymphocytes # 1.2 K/mcL (0.6-4.6); Lymphocytes % 21.5 %; Mean Corpuscular Hemoglobin 25.1 pg (28.0-33.3); Mean Corpuscular Volume 81.2 fL (83.0-100.0); Mean Platelet Volume 9.4 fL (9.4-12.4); Monocytes # 0.5 K/mcL (0.0-1.3); Monocytes % 9.7 %; Neutrophils # 3.6 K/mcL (1.6-8.9); Platelet Count 261 K/mcL (140-400); Red Blood Count 3.46 M/mcL (3.82-4.97); Red Cell Distribution Width 17.7 % (11.5-14.5); Segmented Neutrophils % 66.3 %; White Blood Count 5.4 K/mcL (4.3-11.1)
[2021-12-11 05:37] LABS: Calcium 8.5 mg/dL (8.6-10.3); Potassium 4.6 mEq/L (3.5-5.1)
[2021-12-11] MEDS: Insulin LISPRO 300 UNITS/3 ML VIAL SUBQ SCH ×4 (07:26→18:25)
[2021-12-11] MEDS: lisinopriL 5 MG TABLET PO SCH (07:59)
[2021-12-11] MEDS: Aspirin 81 MG TAB.CHEW PO SCH (07:59)
[2021-12-11] MEDS: PARoxetine 10 MG TABLET PO SCH (07:59)
[2021-12-11 19:59] LABS: Bacteria,Urine Few per hpf (None-Few); Bilirubin,Urine Negative (Negative); Blood,Urine Trace (Negative); Clarity,Urine Turbid (Clear); Color,Urine Yellow (Yellow); Glucose,Urine (UA) Normal (Normal); Ketones,Urine Negative (Negative); Leukocyte Esterase,Urine Large (Negative); Mucus,Urine Few per lpf (None-Few); Nitrite,Urine Negative (Negative); Protein,Urine 100 mg/dL (Neg-Trace); RBC,Urine 0-3 per hpf (0-3); Specific Gravity,Urine 1.009 (1.010-1.025); Squamous Epithelial Cell,Urine Few per hpf (None-Few); Urobilinogen,Urine Normal (Normal); WBC,Urine TNTC per hpf (0-3)
[2021-12-11] MEDS ORDERED: *HR* OxyCODONE Immed Rel 5 MG TABLET PO ONE (23:40)
[2021-12-12 04:09] LABS: Basophils % 0.3 %; Eosinophils # 0.1 K/mcL (0.0-0.6); Eosinophils % 1.7 %; Hematocrit 27.6 % (35.3-44.9); Hemoglobin 8.6 g/dL (11.5-15.4); Immature Granulocytes % 0.2 % (0-4); Lymphocytes # 1.1 K/mcL (0.6-4.6); Lymphocytes % 16.3 %; Mean Corpuscular HGB Conc 31.2 g/dL (31.6-35.5); Mean Corpuscular Hemoglobin 25.2 pg (28.0-33.3); Mean Corpuscular Volume 80.9 fL (83.0-100.0); Mean Platelet Volume 9.7 fL (9.4-12.4); Monocytes # 0.6 K/mcL (0.0-1.3); Monocytes % 9.2 %; Neutrophils # 4.7 K/mcL (1.6-8.9); Platelet Count 273 K/mcL (140-400); Red Blood Count 3.41 M/mcL (3.82-4.97); Red Cell Distribution Width 17.7 % (11.5-14.5); Segmented Neutrophils % 72.3 %; White Blood Count 6.4 K/mcL (4.3-11.1)
[2021-12-12 04:26] LABS: Calcium 8.4 mg/dL (8.6-10.3); Potassium 4.6 mEq/L (3.5-5.1)
[2021-12-12] MEDS: Aspirin 81 MG TAB.CHEW PO SCH (10:17)
[2021-12-12] MEDS: lisinopriL 5 MG TABLET PO SCH (10:17)
[2021-12-12] MEDS: PARoxetine 10 MG TABLET PO SCH (10:19)
[2021-12-12] MEDS: Insulin LISPRO 300 UNITS/3 ML VIAL SUBQ SCH ×3 (10:29→18:10)
[2021-12-13] MEDS: Insulin LISPRO 300 UNITS/3 ML VIAL SUBQ SCH ×3 (10:02→18:04)
[2021-12-13] MEDS: Aspirin 81 MG TAB.CHEW PO SCH (10:03)
[2021-12-13] MEDS: lisinopriL 5 MG TABLET PO SCH (10:03)
[2021-12-13] MEDS: PARoxetine 10 MG TABLET PO SCH (10:04)
[2021-12-13 11:47] LABS: Basophils % 0.4 %; Eosinophils # 0.2 K/mcL (0.0-0.6); Eosinophils % 2.2 %; Hematocrit 30.5 % (35.3-44.9); Hemoglobin 9.3 g/dL (11.5-15.4); Immature Granulocytes % 0.3 % (0-4); Lymphocytes % 14.5 %; Mean Corpuscular HGB Conc 30.5 g/dL (31.6-35.5); Mean Corpuscular Hemoglobin 25.1 pg (28.0-33.3); Mean Corpuscular Volume 82.2 fL (83.0-100.0); Mean Platelet Volume 9.5 fL (9.4-12.4); Monocytes # 0.5 K/mcL (0.0-1.3); Monocytes % 7.5 %; Platelet Count 320 K/mcL (140-400); Red Blood Count 3.71 M/mcL (3.82-4.97); Segmented Neutrophils % 75.1 %; White Blood Count 6.7 K/mcL (4.3-11.1)
[2021-12-13 12:20] LABS: Calcium 8.6 mg/dL (8.6-10.3); Potassium 5.2 mEq/L (3.5-5.1)
[2021-12-13] MEDS ORDERED: 0.9 % Sodium Chloride 1,000 ML IVC SCH (14:45)
[2021-12-13] MEDS ORDERED: SODIUM ZIRCONIUM CYCLOSILICATE 5 GM POWD.PACK PO SCH (14:45)
[2021-12-14 06:19] LABS: Calcium 8.8 mg/dL (8.6-10.3); Potassium 4.5 mEq/L (3.5-5.1)
[2021-12-14 06:44] VITALS: BP 157/60; PULSE 61; TEMP 98.1; O2SAT 98
[2021-12-14] MEDS: PARoxetine 10 MG TABLET PO SCH (07:38)
[2021-12-14] MEDS: Aspirin 81 MG TAB.CHEW PO SCH (07:38)
[2021-12-14] MEDS: Insulin LISPRO 300 UNITS/3 ML VIAL SUBQ SCH ×2 (07:44→11:41)
[2021-12-14 13:31] LABS: Adenovirus Not Detected (Not Detect); Bordetella Pertussis Not Detected (Not Detect); Chlamydophila pneumoniae Not Detected (Not Detect); Coronavirus 229E Not Detected (Not Detect); Coronavirus HKU1 Not Detected (Not Detect); Coronavirus NL63 Not Detected (Not Detect); Coronavirus OC43 Not Detected (Not Detect); Human Metapneumovirus Not Detected (Not Detect); Human Rhinovirus/Enterovirus Not Detected (Not Detect); Influenza A Subtype 2009 H1 Not Detected (Not Detect); Influenza B Not Detected (Not Detect); Mycoplasma pneumoniae Not Detected (Not Detect); Parainfluenza Virus 1 Not Detected (Not Detect); Parainfluenza Virus 2 Not Detected (Not Detect); Parainfluenza Virus 3 Not Detected (Not Detect); Parainfluenza Virus 4 Not Detected (Not Detect); Respiratory Syncytial Virus Not Detected (Not Detect); SARS-CoV-2 Not Detected (Not Detect)
[2021-12-14] MEDS ORDERED: carvediloL 6.25 MG TABLET PO SCH (17:00)
[2021-12-15] MEDS ORDERED: NIFEdipine XL (24 HR) 60 MG TAB.ER.24 PO SCH (09:00)
== END 2021-12-14 15:45 ==
LOC: EMEROOARM 09:31 → 4WAOSI 09:31 → SUATTDRO 18:06 → 4WAOSI 18:48
PROVIDERS: ADMIT Internal Medicine; ATTEND Pharmacist